=== PATIENT | female | born 1945 | race Caucasian/White ===

== ENCOUNTER → 2016-04-16 | Outpatient (CLI) | payer MEDICARE, BC ==
--- NOTE | 2016-04-19 07:23 | MM ---
Reason for exam: clinical finding. Last mammogram was performed 1 year and 4 months ago. History: Patient is postmenopausal and has history of breast cancer at age 53. Lumpectomy of the right breast. Chemotherapy. Radiation therapy of the right breast. Physical Findings: Nurse Summary: 0.5cm nodule in the left breast at 3 o'clock (nurse rachna). MG 3D Diag Mammo W/Cad LUZ Bilateral CC and MLO view(s) were taken. Prior study comparison: December 18, 2014, bilateral MG diagnostic mammo w CAD LUZ. February 07, 2012, mammogram, performed at [facility]. The breast tissue is heterogeneously dense. This may lower the sensitivity of mammography. Finding: There are typically benign calcifications in both breasts. Stable post radiation therapy and lumpectomy changes in the right breast. No significant changes in finding since December 18, 2014 and February 07, 2012. These results were verbally communicated with the patient and result sheet given to the patient on 04/16/16. ASSESSMENT: Incomplete: need additional imaging evaluation, BI-RAD 0 RECOMMENDATION: Ultrasound of the left breast.
--- NOTE | 2016-04-19 07:31 | USB ---
Reason for exam: clinical finding. History: Patient is postmenopausal and has history of breast cancer at age 53. Lumpectomy of the right breast. Chemotherapy. Radiation therapy of the right breast. US Breast BILAT Right breast ultrasound including all four quadrants, the retroareolar region and axilla demonstrates a 21 x 18 x 10mm hypoechoic shadowing tissue at prior cancer site at 12 o'clock. Left breast ultrasound including all four quadrants, the retroareolar region and axilla demonstrates several shadowing calcifications measuring 10mm at 12 o'clock, 7mm at 1 o'clock, 13mm at 2 o'clock at BB, 10mm at 5 o'clock and 5mm at 10 o'clock. No mass identified to biopsy. These results were verbally communicated with the patient and result sheet given to the patient on 04/16/16. ASSESSMENT: Benign, BI-RAD 2 RECOMMENDATION: Follow-up diagnostic mammogram of both breasts in 1 year.
== END | disposition home or self-care (01) ==
LOC: RADMAMWWP 14:23
PROVIDERS: ATTEND Surgery
DX: R92.8 Other abnormal and inconclusive findings on diagnostic imaging of breast (principal)
CPT/HCPCS: 76641; G0204; G0279

== ENCOUNTER 2017-07-05 16:08 | Inpatient (IN) | payer MEDICARE, BC ==
[2017-07-05 17:32] LABS: Glucose,Whole Blood 152 mg/dL (75-99)
[2017-07-05] MEDS ORDERED: NITROGLYCERIN SL TABS 0.4 MG TAB SUBLINGUAL PRN (17:41)
--- NOTE | 2017-07-05 18:31 | XR ---
EXAMINATION TYPE: XR foot complete LT DATE OF EXAM: 07/05/2017 CLINICAL HISTORY: Left foot pain TECHNIQUE: Frontal, lateral, and oblique images of the left foot are obtained. COMPARISON: None FINDINGS: There is surgical absence of the distal left fifth digit and distal metatarsal. There is di ffuse osseous demineralization and extensive vascular calcifications. Degenerative changes of the met atarsal phalangeal joints, proximal interphalangeal joints, and interphalangeal joints are noted. Mod erate plantar enthesophyte is seen. Diffuse soft tissue swelling of the hindfoot, midfoot and forefoo t are seen that are overall mild in degree. IMPRESSION: Extensive vascular atherosclerosis suggesting peripheral arterial disease, diffuse osseou s demineralization, surgical absence of portions of the left fifth digit, and generalized soft tissue swelling are all noted.
[2017-07-05 19:16] LABS: Basophils # (A) 0.1 k/uL (0-0.2); Basophils % (A) 1 %; Eosinophils # (A) 0.3 k/uL (0-0.7); Eosinophils % (A) 4 %; HCT 35.9 % (34.0-46.0); HGB 11.8 gm/dL (11.4-16.0); Lymphocytes # (A) 0.8 k/uL (1.0-4.8); Lymphocytes % (A) 13 %; MCH 27.4 pg (25.0-35.0); MCHC 32.8 g/dL (31.0-37.0); MCV 83.6 fL (80.0-100.0); Mean Platelet Volume 7.2; Monocytes # (A) 0.4 k/uL (0-1.0); Monocytes % (A) 6 %; Neutrophils # (A) 4.8 k/uL (1.3-7.7); Neutrophils % (A) 74 %; Platelet Count 239 k/uL (150-450); RDW 13.7 % (11.5-15.5); WBC 6.5 k/uL (3.8-10.6)
[2017-07-05 19:38] LABS: Albumin 3.5 g/dL (3.5-5.0); Calcium 9.2 mg/dL (8.4-10.2); Potassium 3.7 mmol/L (3.5-5.1); Total Bilirubin 0.4 mg/dL (0.2-1.3); Total Protein 6.9 g/dL (6.3-8.2)
[2017-07-05 21:05] LABS: Glucose,Whole Blood 220 mg/dL (75-99)
[2017-07-05] MEDS: PIPERACILLIN-TAZOBACTAM 3.375 GM in DEXTROSE/WATER 1 50ML.BAG IVPB SCH (21:12)
[2017-07-05] MEDS: INSULIN ASPART 100 UNIT/ML 1 ML 10 ML VIAL SQ SCH (21:52)
[2017-07-05] MEDS: PRAVASTATIN SODIUM 40 MG TAB PO SCH (21:53)
[2017-07-05] MEDS: hydrALAZINE HCL 50 MG TAB PO SCH (21:56)
[2017-07-06] MEDS: PIPERACILLIN-TAZOBACTAM 3.375 GM in DEXTROSE/WATER 1 50ML.BAG IVPB SCH ×3 (05:20→20:23)
[2017-07-06 07:26] LABS: Glucose,Whole Blood 147 mg/dL (75-99)
[2017-07-06] MEDS: hydrALAZINE HCL 50 MG TAB PO SCH ×3 (08:04→21:06)
[2017-07-06] MEDS: CHOLECALCIFEROL 1,000 UNIT TAB PO SCH (08:04)
[2017-07-06] MEDS: amLODIPine 5 MG TAB PO SCH (08:04)
[2017-07-06] MEDS: ASPIRIN 81 MG PO SCH (08:04)
[2017-07-06] MEDS: CARVEDILOL 3.125 MG TAB PO SCH ×3 (08:04→16:09)
[2017-07-06] MEDS: INSULIN ASPART 100 UNIT/ML 1 ML 10 ML VIAL SQ SCH ×5 (08:04→21:05)
[2017-07-06] MEDS: FERROUS SULFATE 325 MG TAB PO SCH (08:04)
[2017-07-06] MEDS: INSULIN DETEMIR 100 UNIT/ML 10 ML VIAL SQ SCH (08:05)
--- NOTE | 2017-07-06 09:45 | HP ---
HISTORY AND PHYSICAL CHIEF COMPLAINT: A 71-year-old white female with failed outpatient treatment with diabetic wound infection of the left lower extremity. She has a history of amputation to her right leg due to PAD. She is diabetic under poor control with her Accu-Chek A1c 9.5. She has failed outpatient podiatry wound care every 2 weeks with oral antibiotics for multiple days. Her wound is getting bigger on her left lateral foot and her entire foot redness, warmth and swelling is proceeding up to the lower leg on the left side above the foot at this point, at which time she is admitted for acute osteomyelitis/cellulitis/diabetic wound infection of the left leg with approximate 2 inch x 1 inch eschar wound on the left lateral foot, which has been debrided over 2 weeks. She has poor mobility, walks with a walker. She has a history of insulin-dependent diabetes mellitus, hypertension, irritable bowel syndrome, hypertension, which has been out of control recently states as well as anxiety, dyslipidemia, possibly diastolic heart failure. HOME MEDICATIONS: Home medications include: 1. Aspirin 81 mg daily. 2. Calcitriol 0.25 mcg daily. 3. Coreg 3.125 t.i.d.. 4. Vitamin D 2000 units daily. 5. Ferrous sulfate 325 daily. 6. Hydralazine 50 t.i.d. 7. Levemir 16 units q.a.m. 8. Multivitamin daily. 9. Nitroglycerin sublingual p.r.n. 10.IV Zosyn q.8 hours. 11.Pravachol 40 mg daily. 12.Spironolactone 25 mg daily. REVIEW OF SYSTEMS: Fourteen-point review of systems negative except for mentioned in HPI. PHYSICAL EXAMINATION: Temp 98.5, pulse 80, respiratory rate 16 to 18, blood pressure 130s to 160s over 70s, O2 is 90% to 95% on room air. CARDIOVASCULAR: S1, S2. A 2/6 systolic ejection murmur. LUNGS: Show decreased breath sounds x4. Scattered rhonchi and wheeze. PSYCH: Fair mood and affect. NEUROLOGIC: Alert and oriented x3. INTEGUMENT: Right leg, she has above-knee amputation with a prosthesis. Left leg, she has severe redness to the knee down to the entire foot, greatest around the foot on the lateral aspect where there is a 2 inch x 1 inch eschar type wound. She has significant redness, warmth, and swelling to the entire left foot up to the knee in the calf area also. X-ray shows peripheral artery disease for which arterial Doppler will be ordered. Continue on broad-spectrum antibiotics. Accu-Cheks protocol. Blood pressure control. Will follow up in next 24 to 48 hours. After bone scan is done to rule out osteomyelitis, a port will be placed for IV antibiotics, which her coal feeder operator has recommended as an outpatient to start IV antibiotics with a port, as it has not healed with oral antibiotics and debridement per Podiatry. We will get Dr. Galo to put in a port. Infectious Disease is consulted for antibiotic choice and she will need probably long-term care somewhere in rehab facility for IV antibiotics or home antibiotics. Will have social set that up. MMODL / IJN: [id number] /
--- NOTE | 2017-07-06 11:49 | CDI ---
Last Revision, March 2017 Documentation Clarification Form Date: 07/06/2017 From: Columba Ashby CCS, CCDS Admit Date: 07/05/2017 4:26:00 PM Patient Name: Kat Eckert Visit Number: [id number] Discharge Date: ATTENTION: The Clinical Documentation Specialists (CDI) and [facility] Coding Staff appreciate your assistance in clarifying documentation. Please respond to the clarification below the line at the bottom and electronically sign. The CDI & [facility] Coding staff will review the response and follow-up if needed. Please note: Queries are made part of the Legal Health Record. If you have any questions, please contact the author of this message via ITS. Dr. Scott Sharp: Per the History & Physical: "She has a history of .... hypertension, which has been out of control recently states as well as ... possibly diastolic heart failure." History/Risk Factors: IDDM, Hypertension, IBS, Anxiety, Dyslipidemia and "possibly" diastolic heart failure. Home Rx: Aldactone, Pravachol, Nitro sl, Coreg, Apresoline, Norvasc, Ins sq, ASA. Clinical Indicators: Patient presented with a diabetic wound infection of the LLE, failed outpatient podiatry wound care & po antibiotics. Enlarging wound let lateral foot, entire foot redness, warmth & swelling proceeding up lower leg left side. VS/Pulse OX: P 80-73, BP 134/76 - 161/73; PO 95-90 RA LAB: BUN 22, Cr 1.41, Gluc 175 Treatment: Nitro sl, IV Zosyn, Insulin sq. Consults: Vascular surgery & Infectious Disease. In your professional opinion, can you please clarify the acuity and type of CHF if known or if evident or ruled out. Systolic Heart Failure: o Acute o Chronic o Acute on Chronic Diastolic Heart Failure: o Acute o Chronic o Acute on Chronic Systolic & Diastolic Heart Failure: o Acute o Chronic o Acute on Chronic Heart Failure Unable to Determine Other, please specify Ruled In w/acuity & type Ruled out Please continue to document in your progress notes and discharge summary in order to capture severity of illness and risk of mortality. Include clinical findings that support your diagnosis. MTDD
[2017-07-06 11:53] VITALS: BMI 29.7
--- NOTE | 2017-07-06 11:56 | CDI ---
Last Revision, March 2017 Documentation Clarification Form Date: 07/06/2017 From: Columba Ashby CCS, CCDS Admit Date: 07/05/2017 4:26:00 PM Patient Name: Kat Eckert Visit Number: [id number] Discharge Date: ATTENTION: The Clinical Documentation Specialists (CDI) and [facility] Coding Staff appreciate your assistance in clarifying documentation. Please respond to the clarification below the line at the bottom and electronically sign. The CDI & [facility] Coding staff will review the response and follow-up if needed. Please note: Queries are made part of the Legal Health Record. If you have any questions, please contact the author of this message via ITS. Dr. Scott Sharp: Per the History & Physical, patient has IDDM documented as "She is diabetic under poor control with her Accu-Chek A1c." Per the Infectious Disease Consult, the patient's DM is "uncontrolled". History/Risk Factors: IDDM, Hypertension, Dyslipidemia, Possibly Diastolic Heart Failure Clinical Indicators: LAB: BUN 22, Cr 1.41, Gluc 175 Treatment: Nitro sl, IV Zosyn, Insulin sq. Consults: ID, Vascular In order to capture the severity of Illness and necessary documentation specificity, please clarify: DM Type 1 DM Type 2 Other, please specify Unable to Determine Please document any body system complications or specific manifestations related to the diabetes: o Diabetic Nephropathy o Diabetic Autonomic Neuropathy o Diabetic Amyotrophy o Diabetic Peripheral Vascular Disease o Diabetic foot ulcers, specify location o Hypoglycemia with or without coma o Hyperglycemia with or without coma o Other condition Please continue to document in your progress notes and discharge summary in order to capture severity of illness and risk of mortality. Include clinical findings that support your diagnosis. MTDD
--- NOTE | 2017-07-06 12:57 | NM ---
EXAMINATION TYPE: NM bone 3 phase DATE OF EXAM: 07/06/2017 COMPARISON: NONE HISTORY: Left foot nonhealing ulcer Anterior posterior full body images and oblique views of the lumbar spine are submitted. Additionally, Triple phase bone scintigraphy was performed following the injection of25.2 mCi Tc 99m MDP. Immediate images and 3.25 hours post injection images acquired. FINDINGS: Full body images demonstrate evidence of [id number] amputation on the right. There is increased u ptake involving the left ankle and foot. Abnormal uptake involving the knees suggestive of post arthr itic changes. Abnormal uptake involving the shoulders and wrist is post arthritic. Nonspecific uptake throughout the thoracic spine and lumbar spine likely degenerative. Triple phase imaging demonstrates increased flow to the left foot. Increased soft tissue uptake is no kishore. Delayed imaging of the foot demonstrates increased uptake along the fifth metatarsal. IMPRESSION: Cellulitis with findings suggestive of osteomyelitis of the left fifth metatarsal. Nonspecific uptake through the vertebral column likely degenerative. X-ray correlation suggested.
[2017-07-06 13:49] LABS: Glucose,Whole Blood 145 mg/dL (75-99)
[2017-07-06 13:52] LABS: Hemoglobin A1C 9.6 % (4.0-6.0)
[2017-07-06] MEDS: MULTIVITAMINS, THERA 1 EACH TAB PO SCH (14:07)
[2017-07-06] MEDS: COLLAGENASE 250 UNIT/GM OINTMENT 30 GM TUBE TOPICAL SCH (16:09)
[2017-07-06] MEDS: SPIRONOLACTONE 25 MG TAB PO SCH (16:09)
[2017-07-06 16:59] LABS: Glucose,Whole Blood 215 mg/dL (75-99)
--- NOTE | 2017-07-06 17:45 | CONS ---
CONSULTATION This is a 71-year-old female known to me from the past and from my office. Patient had an amputation on the right side in the past by me and she also had a left 5th toe amputation done by me in the past. She developed a chronic wound on the left foot lateral aspect. The patient is under care of a air traffic control equipment repairer. The patient has been admitted and had a bone scan which suggested 5th metatarsal osteo. MEDICAL HISTORY: History of diabetes, peripheral vascular disease. EXAMINATION: Patient was seen in her room. NECK: Supple. Trachea central. CHEST: Clear to auscultation. ABDOMEN: Soft. The patient has a right BK amputation done in the past. Femorals are not palpable. Posterior dorsalis pedis is not palpable. Patient has a chronic wound on the left foot lateral aspect with some skin necrosis and possibility of osteomyelitis. PLAN: We will continue with IV antibiotics, Santyl cream for local wound care. I will review her records from the office. She may have some angiogram done in the past and we will review the record and follow with you. Thank you very much for this consultation. MMODL / IJN: [id number] /
[2017-07-06 20:29] LABS: Glucose,Whole Blood 273 mg/dL (75-99)
[2017-07-06] MEDS: PRAVASTATIN SODIUM 40 MG TAB PO SCH (21:06)
--- NOTE | 2017-07-06 23:12 | CONS ---
CONSULTATION DATE OF SERVICE: 07/06/2017. REASON FOR CONSULTATION: Left foot nonhealing wound and a question of osteomyelitis. HISTORY OF PRESENT ILLNESS: The patient is a 71-year-old female, who apparently developed a wound on the left foot lateral border at the base of the previous left 5th toe amputated site. The wound has been there for a couple of weeks to months and may have started from irritation from one of her shoes. The patient has been evaluated by her quality assurance director in the outpatient setting and did mention the wound has been debrided every week and also did a culture done but did not recall what type of infection was. She has been treated in the outpatient setting with an antibiotic. However, the patient did not recall the name of this antibiotic. The patient was noticed to have significant worsening of left foot with more swelling and redness. The patient did have mild dull aching pain 3 to 4/10, and no radiation with minimal drainage. Denies any high-grade fever though. With these symptoms, the patient has been admitted directly to the hospital. The patient did have x-rays of the foot which did show some demineralization, but no active bony changes. Subsequent bone scan was completed, which is positive for osteomyelitis at the left 5th metatarsal infection. ID was consulted for further recommendation regarding antibiotic therapy. REVIEW OF SYSTEMS: Constitutional: Positive for weakness and denies any high-grade fever. Eyes no complaint. ENT no complaint. Respiratory no complaint. Cardiovascular no complaint. Genitourinary no complaint. Gastrointestinal: No complaint. Musculoskeletal no complaint. INTEGUMENTARY: No complaint. Psychological: No complaint. ENDOCRINE: No complaint. Neurological: No complaint. PAST MEDICAL HISTORY: Significant for congestive heart failure, peripheral vascular disease, osteoarthritis, hyperlipidemia, chronic renal insufficiency. PAST SURGICAL HISTORY: Right BKA, left 5th toe amputation, cholecystectomy and hernia repair. SOCIAL HISTORY: Remote history of smoking. No drinking or drug use. FAMILY HISTORY: No pertinent findings noticed. ALLERGIES: INCLUDING TO CIPROFLOXACIN, LEVAQUIN, IODINATED CONTRAST DYE AND SULFA ANTIBIOTIC. MEDICATIONS: Medication include the patient is currently on Xanax, Norvasc, aspirin, Rocaltrol, Coreg, vitamin D3, iron sulfate, hydralazine, NovoLog, Levemir, Nitrostat, Zosyn, Pravachol, Aldactone. EXAMINATION: Blood pressure 138/58 with a pulse of 70, temperature 96.8. She is 97% on room air. General description is an elderly female up in the chair in no distress. No tachypnea or accessory muscles of respiration use. HEENT: Shows no pallor or scleral icterus. Oral mucosal membranes moist. No pharyngeal erythema or thrush. Neck trachea central. No thyromegaly. Lungs unlabored breathing. Clear to auscultation. No wheeze or crackles. Heart S1, S2. Regular rate and rhythm. No murmur. ABDOMEN: Soft. No tenderness. No guarding and no rigidity. EXTREMITIES: No edema of feet. Examination of the left foot lateral border did have a wound with soft tissue at the base. Wound was clean and deep cultures were obtained. They did have some surrounding redness however redness is slightly less compared to yesterday. At the time of admission, neurologically, patient is awake, alert, oriented x3. Mood and affect normal. LABS: Hemoglobin is 11.8, white count 6.5. BUN of 22, creatinine 1.41. Electrolytes have been normal. Liver enzymes are normal. X-ray report as mentioned above. DIAGNOSTIC IMPRESSION/PLAN: 1. Patient with chronic nonhealing wound to the left foot lateral border in a patient who did have a previous history of osteomyelitis requiring right below knee amputation and left 5th toe amputation. Now evidence of wound nonhealing and has failed outpatient antibiotic therapy with both scan positive likely getting osteomyelitis in a patient who does have underlying diabetes, uncontrolled. infection not entirely excluded. 2. Patient did have a comorbid condition of insulin-dependent diabetes mellitus, poorly controlled. 3. Chronic renal insufficiency, complicated. Use antibiotic to treat underlying condition. 4. Patient does have multiple antibiotic ALLERGIES INCLUDING TO SULFA and QUINOLONES limiting the number of antibiotics that could be safely used. PLAN: 1. Wound base was cleaned and deep cultures were obtained the antibiotic therapy. 2. Santyl to the wound followed by moist dressing to be changed daily. 3. We will obtain baseline sedimentation rate and CRP. 4. Zosyn 3.375 g IV piggyback. 5. Depending upon the clinical response as well as cultures will adjust her medications further if needed. Thank you for this consultation. Will follow this patient along with you. MMODL / IJN: [id number] /
[2017-07-07] MEDS: PIPERACILLIN-TAZOBACTAM 3.375 GM in DEXTROSE/WATER 1 50ML.BAG IVPB SCH ×3 (04:02→20:02)
[2017-07-07 07:22] LABS: Glucose,Whole Blood 88 mg/dL (75-99)
[2017-07-07] MEDS: hydrALAZINE HCL 50 MG TAB PO SCH ×3 (09:30→23:37)
[2017-07-07] MEDS: amLODIPine 5 MG TAB PO SCH (09:30)
[2017-07-07] MEDS: ASPIRIN 81 MG PO SCH (09:30)
[2017-07-07] MEDS: FERROUS SULFATE 325 MG TAB PO SCH (09:30)
[2017-07-07] MEDS: CHOLECALCIFEROL 1,000 UNIT TAB PO SCH (09:30)
[2017-07-07] MEDS: CARVEDILOL 3.125 MG TAB PO SCH ×3 (09:31→16:48)
[2017-07-07] MEDS: INSULIN ASPART 100 UNIT/ML 1 ML 10 ML VIAL SQ SCH ×4 (09:31→21:19)
[2017-07-07] MEDS: INSULIN DETEMIR 100 UNIT/ML 10 ML VIAL SQ SCH (09:31)
[2017-07-07 11:46] LABS: Glucose,Whole Blood 174 mg/dL (75-99)
[2017-07-07] MEDS: MULTIVITAMINS, THERA 1 EACH TAB PO SCH (12:48)
[2017-07-07] MEDS ORDERED: FLUCONAZOLE 150 MG TAB PO STA (14:20)
--- NOTE | 2017-07-07 15:31 | PN ---
PROGRESS NOTE DATE OF SERVICE: 07/07/2017. REASON FOR FOLLOWUP: Left foot chronic wound with underlying osteomyelitis and gram-negative acute with associated history of diabetes mellitus. INTERVAL HISTORY: The patient is afebrile, she is breathing comfortably. Denies having any chest pain, shortness of breath, cough, abdominal pain. She is complaining of some urethral itching. No drainage though and no pain in the left foot, lateral border wound area. PHYSICAL EXAMINATION: Blood pressure 142/59, pulse 78, temperature 96.7. She is 95% on room air. General description is an elderly female up in the bed in no distress. RESPIRATORY SYSTEM: Unlabored breathing, clear to auscultation anteriorly. HEART: S1, S2. Regular rate and rhythm. ABDOMEN: Soft, no tenderness. Left foot lateral border wound is currently dressed up, no obvious drainage on the dressing. LABS: Sed rate is 44, CRP is 10.1. Wound culture showing gram-negative bacilli. DIAGNOSTIC IMPRESSION AND PLAN: 1. Patient with left foot lateral border chronic wound with underlying osteomyelitis, culture showing gram-negative. Patient will continue Zosyn, patient need IV access site which could be either a PICC line or a Lozoya catheter. Will leave that decision to the vascular surgeon on the case. Discharge may depend on the culture report. 2. Patient with itching in the urethral area with question of Chasity infection. She will be given 1 dose of Diflucan, see response to the same. Continue supportive care. MMODL / IJN: [id number] /
[2017-07-07] MEDS: SPIRONOLACTONE 25 MG TAB PO SCH (16:44)
[2017-07-07 16:59] LABS: Glucose,Whole Blood 156 mg/dL (75-99)
[2017-07-07] MEDS: COLLAGENASE 250 UNIT/GM OINTMENT 30 GM TUBE TOPICAL SCH (19:59)
[2017-07-07 20:54] LABS: Glucose,Whole Blood 129 mg/dL (75-99)
[2017-07-07] MEDS: PRAVASTATIN SODIUM 40 MG TAB PO SCH (21:28)
[2017-07-07] MEDS: BETAMETHASONE DIPROPIONATE 0.05% OINTMENT 45 GM TUBE TOPICAL SCH (21:29)
[2017-07-07] MEDS: LORATADINE 10 MG TAB PO SCH (21:29)
--- NOTE | 2017-07-07 22:13 | PN ---
PROGRESS NOTE SUBJECTIVE: [id number]-old white female who has osteomyelitis and diabetic wound infection of the left lower foot. No chest pain or shortness of breath. CARDIOVASCULAR: S1, S2. LUNGS: Clear. GI: Soft, nontender. INTEGUMENT: She has a lateral foot wound. CRP is 10.1. Sed rate is 44. Wound culture with Gram-negative bacilli. ASSESSMENT: Chronic wound infection with Gram-negative. Continue with Zosyn. IV access PICC line or Lozoya catheter. Discharge depending on the culture report for IV antibiotics. MMODL / IJN: [id number] /
[2017-07-08] MEDS: PIPERACILLIN-TAZOBACTAM 3.375 GM in DEXTROSE/WATER 1 50ML.BAG IVPB SCH ×3 (04:19→20:21)
[2017-07-08 07:14] LABS: Glucose,Whole Blood 89 mg/dL (75-99)
[2017-07-08] MEDS: INSULIN ASPART 100 UNIT/ML 1 ML 10 ML VIAL SQ SCH ×4 (07:32→21:10)
[2017-07-08] MEDS: amLODIPine 5 MG TAB PO SCH (08:05)
[2017-07-08] MEDS: ASPIRIN 81 MG PO SCH (08:05)
[2017-07-08] MEDS: hydrALAZINE HCL 50 MG TAB PO SCH ×3 (08:05→21:10)
[2017-07-08] MEDS: CHOLECALCIFEROL 1,000 UNIT TAB PO SCH (08:05)
[2017-07-08] MEDS: FERROUS SULFATE 325 MG TAB PO SCH (08:05)
[2017-07-08] MEDS: CARVEDILOL 3.125 MG TAB PO SCH ×3 (08:05→17:59)
[2017-07-08] MEDS: LORATADINE 10 MG TAB PO SCH (08:06)
[2017-07-08] MEDS: BETAMETHASONE DIPROPIONATE 0.05% OINTMENT 45 GM TUBE TOPICAL SCH ×2 (08:08→20:22)
[2017-07-08] MEDS: INSULIN DETEMIR 100 UNIT/ML 10 ML VIAL SQ SCH (10:31)
[2017-07-08] MEDS: COLLAGENASE 250 UNIT/GM OINTMENT 30 GM TUBE TOPICAL SCH (10:31)
--- NOTE | 2017-07-08 10:39 | CDI ---
Last Revision, March 2017 Documentation Clarification Form Date: 07/08/2017 10:36:00 Resubmitted, 2nd request From: Columba Ashby CCS, CCDS Admit Date: 07/05/2017 4:26:00 PM Patient Name: Kat Eckert Visit Number: [id number] Discharge Date: ATTENTION: The Clinical Documentation Specialists (CDI) and [facility] Coding Staff appreciate your assistance in clarifying documentation. Please respond to the clarification below the line at the bottom and electronically sign. The CDI & [facility] Coding staff will review the response and follow-up if needed. Please note: Queries are made part of the Legal Health Record. If you have any questions, please contact the author of this message via ITS. Dr. Scott Sharp: Per the History & Physical: "She has a history of .... hypertension, which has been out of control recently states as well as ... possibly diastolic heart failure." History/Risk Factors: IDDM, Hypertension, IBS, Anxiety, Dyslipidemia and "possibly" diastolic heart failure. Home Rx: Aldactone, Pravachol, Nitro sl, Coreg, Feosol, Xanax, Apresoline, Norvasc, Insulin sq, ASA. Clinical Indicators: Patient presented with a diabetic wound infection of the LLE, failed outpatient podiatry wound care & po antibiotics. Enlarging wound let lateral foot, entire foot redness, warmth & swelling proceeding up lower leg left side. VS/Pulse OX: P 80-73, BP 134/76 - 161/73; PO 95-90 RA LAB: BUN 22, Cr 1.41, Gluc 175 Treatment: Nitro sl, IV Zosyn, Insulin sq. Consults: Vascular surgery & Infectious Disease. In your professional opinion, can you please clarify the acuity and type of CHF if known or if evident or ruled out. Diastolic Heart Failure: o Acute o Chronic o Acute on Chronic Systolic & Diastolic Heart Failure: o Acute o Chronic o Acute on Chronic Heart Failure Unable to Determine Other, please specify Ruled In w/acuity & type Ruled out Please continue to document in your progress notes and discharge summary in order to capture severity of illness and risk of mortality. Include clinical findings that support your diagnosis. MTDD
--- NOTE | 2017-07-08 10:42 | CDI ---
Last Revision, March 2017 Documentation Clarification Form Date: 07/08/2017 10:39:00 Resubmitted, 2nd request. From: Columba Ashby Admit Date: 07/05/2017 4:26:00 PM Patient Name: Kat Eckert Visit Number: [id number] Discharge Date: ATTENTION: The Clinical Documentation Specialists (CDI) and [facility] Coding Staff appreciate your assistance in clarifying documentation. Please respond to the clarification below the line at the bottom and electronically sign. The CDI & [facility] Coding staff will review the response and follow-up if needed. Please note: Queries are made part of the Legal Health Record. If you have any questions, please contact the author of this message via ITS. Dr. Scott Sharp: Per the History & Physical, patient has IDDM documented as "She is diabetic under poor control with her Accu-Chek A1c." History/Risk Factors: IDDM, Hypertension, Dyslipidemia, Possibly Diastolic Heart Failure Clinical Indicators: LAB: BUN 22, Cr 1.41, Gluc 175 Treatment: Nitro sl, IV Zosyn, Insulin sq Consults: ID, Vascular In order to capture the severity of Illness and necessary documentation specificity, please clarify: DM Type 1 DM Type 2 Other, please specify Unable to Determine Please document any body system complications or specific manifestations related to the diabetes: o Diabetic Nephropathy o Diabetic Autonomic Neuropathy o Diabetic Amyotrophy o Diabetic Peripheral Vascular Disease o Diabetic foot ulcers, specify location o Hypoglycemia with or without coma o Hyperglycemia o Other condition Please continue to document in your progress notes and discharge summary in order to capture severity of illness and risk of mortality. Include clinical findings that support your diagnosis. MTDD
[2017-07-08 12:35] LABS: Glucose,Whole Blood 141 mg/dL (75-99)
[2017-07-08] MEDS: MULTIVITAMINS, THERA 1 EACH TAB PO SCH (12:54)
[2017-07-08] MEDS: SPIRONOLACTONE 25 MG TAB PO SCH (12:55)
--- NOTE | 2017-07-08 16:59 | PN ---
PROGRESS NOTE DATE OF SERVICE: 07/08/2017 REASON FOR FOLLOWUP: Left foot lateral border wound with osteomyelitis. INTERVAL HISTORY: The patient is afebrile. She is currently breathing comfortably. Denies having any chest pain, shortness of breath or cough and no worsening pain in the left foot border area. PHYSICAL EXAMINATION: Her blood pressure is 143/66 with a pulse of 67, temperature 98.4. She is 97% on room air. General description is an elderly female up in the chair in no distress. RESPIRATORY SYSTEM: Unlabored breathing. Clear to auscultation anteriorly. HEART: S1, S2. Regular rate and rhythm. ABDOMEN: Soft. No tenderness. Left foot lateral border wound is currently dressed; no obvious drainage on the dressing. LABS: Wound culture initially was showing a Gram-negative and now saying a polymicrobial. DIAGNOSTIC IMPRESSION AND PLAN: Patient with left foot lateral border wound with underlying osteomyelitis. Initial culture with a Gram-negative; now those have been disregarded by the micro lab. Will discuss with them to grow up the predominant pathogen. Antibiotics were adjusted to Rocephin 2 grams daily. Local wound care with Santyl followed by moist dressing. Await the IV access per Vascular Surgery. Continue supportive care. MMODL / IJN: [id number] /
--- NOTE | 2017-07-08 17:44 | PN ---
PROGRESS NOTE SUBJECTIVE: [id number]old white female awaiting port or PICC line placement for IV antibiotics for osteomyelitis of the left foot. nausea and vomiting with taking all her pills in the morning. Sugars have been mid 100s. CARDIOVASCULAR: S1, S2. LUNGS: Clear. GI: Soft. HEMATOLOGY: Negative Homans. PLAN: Continue PICC line or port placement. Continue IV antibiotics. Discharge planning for [facility]. MMODL / IJN: [id number] /
[2017-07-08 17:47] LABS: Glucose,Whole Blood 175 mg/dL (75-99)
[2017-07-08] MEDS: PRAVASTATIN SODIUM 40 MG TAB PO SCH (20:22)
[2017-07-08] MEDS: HEPARIN SODIUM,PORCINE 5,000 UNIT/ML 1 ML VIAL SQ SCH (20:34)
[2017-07-08 20:48] LABS: Glucose,Whole Blood 273 mg/dL (75-99)
[2017-07-09] MEDS: PIPERACILLIN-TAZOBACTAM 3.375 GM in DEXTROSE/WATER 1 50ML.BAG IVPB SCH ×3 (03:18→21:22)
[2017-07-09 07:31] LABS: Glucose,Whole Blood 86 mg/dL (75-99)
[2017-07-09 07:32] LABS: Mean Platelet Volume 6.8; Platelet Count 264 k/uL (150-450)
[2017-07-09] MEDS ORDERED: IV FLUID CONTINUATION 175 ML IV ONE (07:55)
[2017-07-09] MEDS ORDERED: diphenhydrAMINE 50 MG/ML 1 ML VIAL IVP ONE (07:58)
[2017-07-09] MEDS ORDERED: MIDAZOLAM 2 MG/2 ML VIAL IVP ONE (07:58)
[2017-07-09] MEDS ORDERED: LIDOCAINE 2% INJ 20 MG/ML SQ ONE (08:00)
[2017-07-09] MEDS: INSULIN ASPART 100 UNIT/ML 1 ML 10 ML VIAL SQ SCH ×4 (08:19→21:22)
[2017-07-09] MEDS: INSULIN DETEMIR 100 UNIT/ML 10 ML VIAL SQ SCH (08:20)
[2017-07-09] MEDS: HEPARIN SODIUM,PORCINE 5,000 UNIT/ML 1 ML VIAL SQ SCH ×2 (08:20→21:22)
[2017-07-09] MEDS: COLLAGENASE 250 UNIT/GM OINTMENT 30 GM TUBE TOPICAL SCH (08:20)
[2017-07-09] MEDS: BETAMETHASONE DIPROPIONATE 0.05% OINTMENT 45 GM TUBE TOPICAL SCH ×2 (08:21→21:23)
[2017-07-09] MEDS: FERROUS SULFATE 325 MG TAB PO SCH (09:06)
[2017-07-09] MEDS: LORATADINE 10 MG TAB PO SCH (09:06)
[2017-07-09] MEDS: MULTIVITAMINS, THERA 1 EACH TAB PO SCH (09:06)
[2017-07-09] MEDS: CHOLECALCIFEROL 1,000 UNIT TAB PO SCH (09:06)
[2017-07-09] MEDS: amLODIPine 5 MG TAB PO SCH (09:07)
[2017-07-09] MEDS: hydrALAZINE HCL 50 MG TAB PO SCH ×3 (09:07→21:22)
[2017-07-09] MEDS: ASPIRIN 81 MG PO SCH (09:07)
[2017-07-09] MEDS: CARVEDILOL 3.125 MG TAB PO SCH ×3 (09:07→15:04)
[2017-07-09] MEDS: ALPRAZolam 0.5 MG TAB PO PRN (09:08)
--- NOTE | 2017-07-09 09:27 | OP ---
OPERATIVE REPORT PREOP DIAGNOSIS: Osteomyelitis of the left foot 5th metatarsal with infected wound. PROCEDURE: Ultrasound-guided 5-[place] Medcomp catheter placed right internal jugular approach with conscious sedation 27 minutes. DESCRIPTION OF PROCEDURE: This patient was brought to the rn cardiac cath. Right side of the neck and chest was prepped and draped in a sterile manner. 1% lidocaine was infiltrated into the neck and chest area. Ultrasound-guided micropuncture into the right jugular vein. Micropuncture guide was passed. Checked the C-arm. After that, a tunnel was created. Through the tunnel we brought the Medcomp dialysis catheter to the neck area. Sheath was advanced on the top of the guidewire through the sheath. Through the sheath we placed a 5- [place] Medcomp catheter. Sheath was removed. The tip of the catheter in superior vena cava and atrium flushed with heparin saline and secured with Vicryl and nylon. Dressing applied. Conscious sedation time is 27 minutes. The patient tolerated the procedure well. MMODL / IJN: [id number] /
[2017-07-09 12:18] LABS: Glucose,Whole Blood 263 mg/dL (75-99)
[2017-07-09] MEDS: SPIRONOLACTONE 25 MG TAB PO SCH (13:56)
[2017-07-09 17:34] LABS: Glucose,Whole Blood 155 mg/dL (75-99)
--- NOTE | 2017-07-09 20:40 | IR ---
EXAMINATION TYPE: IR cvc insert central tunneled DATE OF EXAM: 07/09/2017 CLINICAL HISTORY: Central line insertion. TECHNIQUE: Fluoroscopy. COMPARISON: None. FINDINGS: Fluoroscopic guidance was provided during right internal jugular central line insertion pr ena performed by Dr. Spencer. A total of 0.6 minutes of fluoroscopic time was utilized during th e procedure and 3 spot images are acquired. Images acquired show placement of guidewire and subsequen t right internal jugular central venous catheter with tip into right atrium. Overlying pacemaker wire s are present. IMPRESSION: As Above.
[2017-07-09 21:10] LABS: Glucose,Whole Blood 130 mg/dL (75-99)
[2017-07-09] MEDS: PRAVASTATIN SODIUM 40 MG TAB PO SCH (21:22)
[2017-07-10] MEDS: PIPERACILLIN-TAZOBACTAM 3.375 GM in DEXTROSE/WATER 1 50ML.BAG IVPB SCH ×3 (04:46→21:31)
[2017-07-10 07:16] LABS: Glucose,Whole Blood 94 mg/dL (75-99)
[2017-07-10] MEDS: INSULIN ASPART 100 UNIT/ML 1 ML 10 ML VIAL SQ SCH ×4 (07:17→21:31)
[2017-07-10 07:56] LABS: Mean Platelet Volume 7.5; Platelet Count 224 k/uL (150-450)
[2017-07-10] MEDS: CARVEDILOL 3.125 MG TAB PO SCH ×3 (07:59→15:01)
[2017-07-10] MEDS: hydrALAZINE HCL 50 MG TAB PO SCH ×3 (07:59→21:31)
[2017-07-10] MEDS: FERROUS SULFATE 325 MG TAB PO SCH (07:59)
[2017-07-10] MEDS: amLODIPine 5 MG TAB PO SCH (07:59)
[2017-07-10] MEDS: ALPRAZolam 0.5 MG TAB PO PRN (07:59)
[2017-07-10] MEDS: ASPIRIN 81 MG PO SCH (07:59)
[2017-07-10] MEDS: CHOLECALCIFEROL 1,000 UNIT TAB PO SCH (08:00)
[2017-07-10] MEDS: LORATADINE 10 MG TAB PO SCH (08:00)
[2017-07-10] MEDS: MULTIVITAMINS, THERA 1 EACH TAB PO SCH (08:00)
[2017-07-10] MEDS: COLLAGENASE 250 UNIT/GM OINTMENT 30 GM TUBE TOPICAL SCH (08:00)
[2017-07-10] MEDS: HEPARIN SODIUM,PORCINE 5,000 UNIT/ML 1 ML VIAL SQ SCH ×2 (08:00→21:31)
[2017-07-10] MEDS: BETAMETHASONE DIPROPIONATE 0.05% OINTMENT 45 GM TUBE TOPICAL SCH ×2 (08:00→21:31)
[2017-07-10] MEDS: INSULIN DETEMIR 100 UNIT/ML 10 ML VIAL SQ SCH (08:55)
[2017-07-10] MEDS: SPIRONOLACTONE 25 MG TAB PO SCH (11:04)
--- NOTE | 2017-07-10 11:33 | PN ---
PROGRESS NOTE ADDENDUM: Please add to progress note: Chronic diastolic heart failure. MMANNABELLEL / IJN: [id number] /
--- NOTE | 2017-07-10 11:33 | PN ---
PROGRESS NOTE ADDENDUM: Please add: DIAGNOSIS: Diabetes mellitus type 2. MMODL / IJN: [id number] /
[2017-07-10 11:47] LABS: Glucose,Whole Blood 145 mg/dL (75-99)
--- NOTE | 2017-07-10 13:43 | PN ---
PROGRESS NOTE DATE OF SERVICE: 07/09/17 SUBJECTIVE: 71-year-old white female with osteomyelitis of the left foot, had a port placed. She is doing much better. She remains on IV Zosyn at this time. Sugars have been in the mid 94 to 155. Awaiting Infectious Disease recommendations for long-term antibiotics. She will need 4 to 6 weeks of IV antibiotics for left foot lateral border infection with underlying osteomyelitis. gram-negatives. She is getting Rocephin 2 gram IV daily and Santyl dressings to the foot. Vascular Surgery put a port in. She will be sent to rehab this week coming up. MMODL / IJN: [id number] /
[2017-07-10 16:59] LABS: Glucose,Whole Blood 94 mg/dL (75-99)
--- NOTE | 2017-07-10 17:19 | PN ---
PROGRESS NOTE SUBJECTIVE: A 71-year-old white female, osteomyelitis of the left foot, 5th digit, lateral wound infection. Patient is requesting some cream for her left scalp. Otherwise, vital signs appear to be stable. Sugars in the low 100s to high 90s. Cardiovascular S1, S2. Lungs clear. GI: Soft. Integument: Her left leg is red from her mid tibia down to her foot. Bandage on her left foot. Continue current treatment. Follow up in the next 24 to 48 hours for IV PICC line. Port has been placed and she is going to correction on IV antibiotics for about 6 weeks. MMODL / IJN: [id number] /
[2017-07-10 20:49] LABS: Glucose,Whole Blood 168 mg/dL (75-99)
[2017-07-10] MEDS: PRAVASTATIN SODIUM 40 MG TAB PO SCH (21:31)
[2017-07-11] MEDS: PIPERACILLIN-TAZOBACTAM 3.375 GM in DEXTROSE/WATER 1 50ML.BAG IVPB SCH ×2 (04:59→16:19)
--- NOTE | 2017-07-11 07:12 | PN ---
PROGRESS NOTE DATE OF SERVICE: 07/10/2017 REASON FOR FOLLOWUP: Left foot lateral border wound with osteomyelitis. INTERVAL HISTORY: The patient is afebrile. She is breathing comfortably. Denies having any chest pain, shortness of breath or cough. No abdominal pain and no pain in her left foot lateral border wound area. PHYSICAL EXAMINATION: On examination, blood pressure 133/69 with pulse of 73, temperature 97. She is 95% on room air. General description is an elderly female up in the bed in no distress. RESPIRATORY SYSTEM: Unlabored breathing, clear to auscultation anteriorly. HEART: S1, S2, regular rate and rhythm. ABDOMEN: Soft, no tenderness. Left foot lateral border wound is currently dressed up, no obvious drainage on the dressing. DIAGNOSTIC IMPRESSION AND PLAN: Patient with left foot lateral border wound with secondary cellulitis with underlying osteomyelitis. Initial culture showing a Gram-negative. However, culture has been subsequently rejected by the micro lab. A repeat culture has been done by Dr. Galo yesterday. Will await for them to be finalized. Keep the patient on Zosyn at this point. Local wound care with Santyl. Continue supportive care. MMODL / IJN: [id number] /
[2017-07-11 07:17] LABS: Glucose,Whole Blood 87 mg/dL (75-99)
[2017-07-11] MEDS: INSULIN ASPART 100 UNIT/ML 1 ML 10 ML VIAL SQ SCH ×4 (07:36→22:35)
[2017-07-11 08:11] LABS: Albumin 3.1 g/dL (3.5-5.0); Calcium 8.7 mg/dL (8.4-10.2); Total Bilirubin 0.2 mg/dL (0.2-1.3); Total Protein 6.1 g/dL (6.3-8.2)
[2017-07-11 08:13] LABS: Basophils % (A) 1 %; Eosinophils # (A) 0.4 k/uL (0-0.7); Eosinophils % (A) 6 %; HCT 34.5 % (34.0-46.0); HGB 10.8 gm/dL (11.4-16.0); Lymphocytes # (A) 0.7 k/uL (1.0-4.8); Lymphocytes % (A) 13 %; MCHC 31.4 g/dL (31.0-37.0); Mean Platelet Volume 7.5; Monocytes # (A) 0.3 k/uL (0-1.0); Monocytes % (A) 6 %; Neutrophils # (A) 4.2 k/uL (1.3-7.7); Neutrophils % (A) 72 %; Platelet Count 236 k/uL (150-450); RBC 4.01 m/uL (3.80-5.40); WBC 5.8 k/uL (3.8-10.6)
[2017-07-11] MEDS: INSULIN DETEMIR 100 UNIT/ML 10 ML VIAL SQ SCH (08:19)
[2017-07-11] MEDS: HEPARIN SODIUM,PORCINE 5,000 UNIT/ML 1 ML VIAL SQ SCH ×2 (08:19→21:52)
[2017-07-11] MEDS: FERROUS SULFATE 325 MG TAB PO SCH (08:20)
[2017-07-11] MEDS: amLODIPine 5 MG TAB PO SCH (08:20)
[2017-07-11] MEDS: CARVEDILOL 3.125 MG TAB PO SCH ×3 (08:20→16:19)
[2017-07-11] MEDS: CHOLECALCIFEROL 1,000 UNIT TAB PO SCH (08:20)
[2017-07-11] MEDS: ASPIRIN 81 MG PO SCH (08:20)
[2017-07-11] MEDS: BETAMETHASONE DIPROPIONATE 0.05% OINTMENT 45 GM TUBE TOPICAL SCH ×2 (08:20→21:53)
[2017-07-11] MEDS: COLLAGENASE 250 UNIT/GM OINTMENT 30 GM TUBE TOPICAL SCH (08:20)
[2017-07-11] MEDS: hydrALAZINE HCL 50 MG TAB PO SCH ×3 (08:21→21:52)
[2017-07-11] MEDS: LORATADINE 10 MG TAB PO SCH (08:21)
[2017-07-11] MEDS ORDERED: CALCITRIOL 0.25 MCG CAP PO SCH (09:00)
--- NOTE | 2017-07-11 11:06 | CDI ---
Last Revision, March 2017 Documentation Clarification Form Date: 07/11/2017 10:55:00 AM (resubmitted) From: Columba Ashby CCS, CCDS Admit Date: 07/05/2017 4:26:00 PM Patient Name: Kat Eckert Visit Number: [id number] Discharge Date: ATTENTION: The Clinical Documentation Specialists (CDI) and [facility] Coding Staff appreciate your assistance in clarifying documentation. Please respond to the clarification below the line at the bottom and electronically sign. The CDI & [facility] Coding staff will review the response and follow-up if needed. Please note: Queries are made part of the Legal Health Record. If you have any questions, please contact the author of this message via ITS. Dr. Scott Sharp: Thank you for clarifying the type of Diabetes Mellitus (type II), please document your response to the following: Per the History & Physical, patient has IDDM II documented as "She is diabetic under poor control with her Accu-Check A1c." Per the Infectious Disease consult: "...patient does have underlying diabetes, uncontrolled." History/Risk Factors: IDDM II, Hypertension, Dyslipidemia, Possibly Diastolic Heart Failure Clinical Indicators: LAB: BUN 22, Cr 1.41, Gluc 175 Treatment: Nitro sl, IV Zosyn, Insulin sq Consults: ID, Vascular In order to capture the severity of Illness and necessary documentation specificity, please clarify any body system complications or specific manifestations related to the diabetes: Diabetic Nephropathy Diabetic Neuropathy Diabetic Peripheral Vascular Disease Diabetic foot ulcers, specify location Hypoglycemia with or without coma Hyperglycemia with or without coma Other condition Please continue to document in your progress notes and discharge summary in order to capture severity of illness and risk of mortality. Include clinical findings that support your diagnosis. MTDD
[2017-07-11 12:23] LABS: Glucose,Whole Blood 121 mg/dL (75-99)
[2017-07-11] MEDS: MULTIVITAMINS, THERA 1 EACH TAB PO SCH (13:23)
[2017-07-11] MEDS: SPIRONOLACTONE 25 MG TAB PO SCH (13:23)
[2017-07-11 17:18] LABS: Glucose,Whole Blood 150 mg/dL (75-99)
[2017-07-11 21:00] LABS: Glucose,Whole Blood 245 mg/dL (75-99)
--- NOTE | 2017-07-11 21:18 | PN ---
PROGRESS NOTE DATE OF SERVICE: 07/11/2017. REASON FOR FOLLOWUP: Left leg of wound and osteomyelitis. INTERVAL HISTORY: The patient is afebrile. She is currently breathing comfortably. Denies having any chest pain, shortness of breath or cough. Abdominal pain or any diarrhea. EXAMINATION: Her blood pressure is 136/68 with a pulse of 70, temperature 96.6. She is 98% on room air. General description is an elderly female up in the bed in no distress. Respiratory system unlabored breathing. Clear to auscultation anteriorly. Heart S1, S2. Regular rate and rhythm. Abdomen soft, no tenderness. Left leg wound with minimal amount of slough tissue surrounding redness improved. LABS: Hemoglobin is 10.2, white count 5.8. BUN of 36, creatinine 2.09. DIAGNOSTIC IMPRESSION AND PLAN: Patient with a left leg nonhealing wound with secondary cellulitis and osteomyelitis. Wound culture with a gram-negative. We are waiting for these cultures to finalized discharge antibiotics. Continue the patient on Zosyn at this point. Did have slight jump in her creatinine that needs to be monitored closely. Repeat the BMP tomorrow. Continue supportive care. MMODL / IJN: [id number] /
[2017-07-11] MEDS: PRAVASTATIN SODIUM 40 MG TAB PO SCH (21:52)
--- NOTE | 2017-07-11 22:35 | PN ---
PROGRESS NOTE SUBJECTIVE: This is a 71-year-old white female with osteomyelitis of the left foot. Awaiting final cultures for IV PICC line placement. Continue with current treatments. Vital signs stable. Afebrile. CARDIOVASCULAR: S1, S2. LUNGS: Clear. GI: Soft. INTEGUMENT: Lateral left foot. Wound cultures are pending. Redness of the left leg improved. Scalp dermatitis, improved with triamcinolone cream. Await final cultures. IV antibiotics for 6 weeks will be needed. MMODL / IJN: [id number] /
[2017-07-12] MEDS: PIPERACILLIN-TAZOBACTAM 3.375 GM in DEXTROSE/WATER 1 50ML.BAG IVPB SCH (04:51)
[2017-07-12 07:37] LABS: Glucose,Whole Blood 99 mg/dL (75-99)
[2017-07-12] MEDS: INSULIN ASPART 100 UNIT/ML 1 ML 10 ML VIAL SQ SCH ×3 (07:58→18:00)
[2017-07-12 08:11] VITALS: RESP 16
[2017-07-12] MEDS: CARVEDILOL 3.125 MG TAB PO SCH ×3 (09:08→18:00)
[2017-07-12] MEDS: CHOLECALCIFEROL 1,000 UNIT TAB PO SCH (09:08)
[2017-07-12] MEDS: FERROUS SULFATE 325 MG TAB PO SCH (09:08)
[2017-07-12] MEDS: LORATADINE 10 MG TAB PO SCH (09:08)
[2017-07-12] MEDS: MULTIVITAMINS, THERA 1 EACH TAB PO SCH (09:08)
[2017-07-12] MEDS: HEPARIN SODIUM,PORCINE 5,000 UNIT/ML 1 ML VIAL SQ SCH (09:08)
[2017-07-12] MEDS: ASPIRIN 81 MG PO SCH (09:09)
[2017-07-12] MEDS: COLLAGENASE 250 UNIT/GM OINTMENT 30 GM TUBE TOPICAL SCH (09:09)
[2017-07-12] MEDS: hydrALAZINE HCL 50 MG TAB PO SCH ×2 (09:09→15:05)
[2017-07-12] MEDS: amLODIPine 5 MG TAB PO SCH (09:09)
[2017-07-12] MEDS: BETAMETHASONE DIPROPIONATE 0.05% OINTMENT 45 GM TUBE TOPICAL SCH (09:09)
[2017-07-12] MEDS: INSULIN DETEMIR 100 UNIT/ML 10 ML VIAL SQ SCH (09:11)
--- NOTE | 2017-07-12 10:52 | CDI ---
Documentation Clarification Form Date: 07/12/2016 10:37:00 am CDS/Television Program Director Name: Columba Ashby CCS, CCDS Admit Date: 07/05/2016 Discharge Date: Patient Name: Kat Eckert ATTENTION: The Clinical Documentation Specialists (CDI) and [facility] Coding Staff appreciate your assistance in clarifying documentation. Please respond to the clarification below the line at the bottom and electronically sign. The CDI & [facility] Coding staff will review the response and follow-up if needed. Please note: Queries are made part of the Legal Health Record. If you have any questions, please contact the author of this message via ITS. Dr. Bonilla: Patient presented with a diabetic wound infection of the LLE, failed outpatient treatment. Per your 07/06 consult: Chronic renal insufficiency, complicated. (Nephrology is not consulted). History/Risk Factors: IDDM II, Hypertension, IBS. Clinical Indicators: Diagnosed with acute osteomyelitis & cellulitis of diabetic wound to left lower leg. Current BUN/CR/GFR: 36 / 2. Patients Baseline: BUN/CR/GFR: not documented. Treatment: IV Zosyn, Insulin sq, wound care Patients medications include: Aldactone, Pravachol, Nitro sl, Coreg, Calcitriol , Feosol, Apresoline, Norvasc In order to capture the severity of condition, please clarify if the condition signifies: CKD Stage 1 (GFR > 90) CKD Stage 2 (GFR 60-89) CKD Stage 3 (GFR 30-59) CKD Stage 4 (GFR 15-29) CKD Stage 5 (GFR <15) ESRD Other, please specify Unable to determine Please continue to document in your progress notes and discharge summary in order to capture severity of illness and risk of mortality. Include clinical findings that support your diagnosis. . MTDD
[2017-07-12 11:55] LABS: Glucose,Whole Blood 157 mg/dL (75-99)
[2017-07-12] MEDS: SPIRONOLACTONE 25 MG TAB PO SCH (11:55)
[2017-07-12] MEDS ORDERED: ERTAPENEM 1 GM in SODIUM CHLORIDE 0.9% 50 ML IVPB SCH (12:00)
--- NOTE | 2017-07-12 13:01 | DS ---
DISCHARGE SUMMARY DISCHARGE DIAGNOSES: 1. Cellulitis of the left foot. 2. Osteomyelitis of the left fourth digit tarsometatarsal area. 3. Insulin-dependent diabetes mellitus. 4. Irritable bowel syndrome. 5. Hypertension. 6. Iron deficiency anemia. 7. Generalized debility. 8. Osteoarthritis. 9. Peripheral vascular disease. 10.Diastolic heart failure. 11.Chronic renal insufficiency, stage 3B. ALLERGIES: Allergies include CIPRO, LEVAQUIN, CONTRAST DYE, SULFA ANTIBIOTICS. She has a history of anxiety. MEDICATIONS: Medications will include: 1. Xanax 0.5 q.h.s. 2. Norvasc 5 mg daily. 3. Aspirin 81 mg daily. 4. Diprolene application b.i.d. 5. Calcitriol 0.25 mcg daily. 6. Coreg 3.125 t.i.d. 7. Vitamin D3, 2000 units daily. 8. Santyl application daily. 9. Ertapenem 1gram IV q.24 hours. 10.Ferrous sulfate 325 daily. 11.Hydralazine 50 t.i.d. 12.Levemir 16 units daily. 13.Accu-Chek a.c. and at bedtime. 14.Claritin 10 mg daily. 15. . 16.Nitrostat 0.4 mg sublingual p.r.n. 17.Pravachol 40 mg daily. 18. 1 gram daily for 42 days. CONDITION: Stable. PROGNOSIS: Guarded. Ambulate as tolerated. HOSPITAL COURSE OF EVENTS: This is a white female who was admitted to the hospital with diabetic wound infection of the left foot, was found to have osteomyelitis in the fourth metatarsal. IV Invanz is being hooked up for 42 days. She has history of insulin-dependent diabetes mellitus, hypertension, irritable bowel syndrome, generalized debility, multiple treatments as mentioned above. Her kidney function is stage 3B to chronic renal disease stage IV. She has mild protein calorie malnutrition. She has been improved with IV antibiotics at that time. She will go home with IV antibiotics to the shelter for physical therapy for the next 6 weeks. Follow up with Dr. Bonilla in his office. Follow up with Dr. Scott Sharp in the office. MMODL / IJN: [id number] /
[2017-07-12 14:57] VITALS: BP 136/74; PULSE 81; TEMP 98.3
--- NOTE | 2017-07-12 15:01 | PN ---
PROGRESS NOTE DATE OF SERVICE: 07/12/2017. REASON FOR FOLLOWUP: Left lateral foot wound with secondary osteomyelitis gram-negative mixed joe. INTERVAL HISTORY: The patient is afebrile. She is breathing comfortably. Denies having any chest pain. No shortness of breath or abdominal pain or any worsening pain in the left foot area. EXAMINATION: Blood pressure 141/63 with a pulse of 85, temperature 98.4. She is 92% on room air. General description is an elderly female lying in bed in no distress. RESPIRATORY SYSTEM: Unlabored breathing. Clear to auscultation anteriorly. HEART: S1, S2. Regular rate and rhythm. ABDOMEN: Soft, no tenderness. Left foot wound is currently dressed up with no obvious drainage on the dressing. LABS: No new labs have been obtained today. Wound culture finalized with Enterococcus faecalis that is penicillin sensitive and Serratia marcescens. DIAGNOSTIC IMPRESSION AND PLAN: Patient with left foot wound with underlying osteomyelitis. Culture now finalized with Serratia marcescens and Enterococcus faecalis, penicillin sensitive. The patient is ALLERGIC TO CIPRO, LEVAQUIN AND SULFA. Antibiotic will be adjusted to Invanz 1 g daily. That should cover both the pathogen for a total of 6 weeks with weekly monitoring of CBC, BMP and sed rate. The patient's baseline 30-44. Local wound care with Santyl. She was noticed to have a slight jump in her creatinine yesterday of 2.09 with admission creatinine 1.41. That will put her in CKD stage IV. Advised to obtain a stat BMP and if she has any worsening of her creatinine to hold discharge and have her evaluated by Nephrology. This was communicated to the patient's RN. Continue supportive care. MMODL / IJN: [id number] /
[2017-07-12 15:51] LABS: Calcium 9.1 mg/dL (8.4-10.2); Potassium 4.9 mmol/L (3.5-5.1)
[2017-07-12 17:25] LABS: Glucose,Whole Blood 218 mg/dL (75-99)
--- NOTE | 2017-07-20 10:40 | P.ARTDOP ---
Arterial Doppler LOWER EXTREMITY ARTERIAL DOPPLER: DATE OF SERVICE: 07/06/2017 Reason for study: Status post right BKA. Osteomyelitis left foot. Doppler waveforms: Multiphasic bilaterally throughout. Pulse volume recording: Mild blunting throughout. Toe waveforms are blunted but persistent Pressure gradients: Only at the foot level. Ankle-brachial indices: Greater than 1 bilaterally. Toe pressures: [] on the right, 29 on the left Impression: Suspect diffuse calcific wall disease. Perfusion likely not to be adequate for healing. Clinical correlation recommended.
--- NOTE | 2017-07-26 07:41 | CDI ---
Last Revision, March 2017 Documentation Clarification Form Date: 07/26/17 From: Dot Gerber Phone: If you have a question regarding this query, please contact Sherrie Malin at [phone] between 8am and 5pm Admit Date: 07/05/2017 4:26:00 PM Patient Name: Kat Eckert Visit Number: [id number] Discharge Date: 07/12/17 ATTENTION: The Clinical Documentation Specialists (CDI) and [facility] Coding Staff appreciate your assistance in clarifying documentation. Please respond to the clarification below the line at the bottom and electronically sign. The CDI & [facility] Coding staff will review the response and follow-up if needed. Please note: Queries are made part of the Legal Health Record. If you have any questions, please contact the author of this message via ITS. Dr. Scott Sharp The patient has diabetes, as indicated throughout the chart. The patient was admitted for left leg nonhealing wound with secondary cellulitis and osteomyelitis. History/Risk Factors: Nonhealing wound to the left foot and diabetes. Clinical Indicators: Severe redness to the knee downt to the entire foot. Significant redness, warmth and swelling to the entire left foot up to the knee. Treatment: IV Zosyn In order to capture the severity of Illness and necessary documentation specificity, please clarify if the cellulitis is a manifestation related to the diabetes: Cellulitis related to DM Cellulitis unrelated to DM Other, please specify Unable to Determine MTDD
--- NOTE | 2017-07-29 14:18 | CDI ---
Last Revision, March 2017 Documentation Clarification Form Date: 07/29/17 From: Dot Gerber Phone: If you have a question regarding this query, please contact Sherrie Malin at [phone] between 8am and 5pm Admit Date: 07/05/2017 4:26:00 PM Patient Name: Kat Eckert Visit Number: [id number] Discharge Date: 07/12/17 ATTENTION: The Clinical Documentation Specialists (CDI) and [facility] Coding Staff appreciate your assistance in clarifying documentation. Please respond to the clarification below the line at the bottom and electronically sign. The CDI & [facility] Coding staff will review the response and follow-up if needed. Please note: Queries are made part of the Legal Health Record. If you have any questions, please contact the author of this message via ITS. Dr. Scott Sharp Thank you for signing the previous query. Please document a response for this query before signing it. The patient has diabetes, as indicated throughout the chart. The patient was admitted for left leg nonhealing wound with secondary cellulitis and osteomyelitis. History/Risk Factors: Nonhealing wound to the left foot and diabetes. Clinical Indicators: Severe redness to the knee downt to the entire foot. Significant redness, warmth and swelling to the entire left foot up to the knee. Treatment: IV Zosyn In order to capture the severity of Illness and necessary documentation specificity, please clarify if the cellulitis is a manifestation related to the diabetes: Cellulitis related to DM Cellulitis unrelated to DM Other, please specify Unable to Determine MTDD
--- NOTE | 2017-08-03 09:33 | CDI ---
Last Revision, March 2017 Documentation Clarification Form Date: 08/03/17 From: Dot Gerber Phone: If you have a question regarding this query, please contact Sherrie Malin at [phone] between 8am and 5pm Admit Date: 07/05/2017 4:26:00 PM Patient Name: Kat Eckert Visit Number: [id number] Discharge Date: 07/12/17 ATTENTION: The Clinical Documentation Specialists (CDI) and [facility] Coding Staff appreciate your assistance in clarifying documentation. Please respond to the clarification below the line at the bottom and electronically sign. The CDI & [facility] Coding staff will review the response and follow-up if needed. Please note: Queries are made part of the Legal Health Record. If you have any questions, please contact the author of this message via ITS. Dr. Scott Sharp Thank you for signing your previous query. Please document a response before signing this query. The patient has diabetes, as indicated throughout the chart. The patient was admitted for left leg nonhealing wound with secondary cellulitis and osteomyelitis. History/Risk Factors: Nonhealing wound to the left foot and diabetes. Clinical Indicators: Severe redness to the knee downt to the entire foot. Significant redness, warmth and swelling to the entire left foot up to the knee. Treatment: IV Zosyn In order to capture the severity of Illness and necessary documentation specificity, please clarify if the cellulitis is a manifestation related to the diabetes: Cellulitis related to DM Cellulitis unrelated to DM Other, please specify Unable to Determine MTDD
--- NOTE | 2017-08-03 19:36 | DS ---
DISCHARGE SUMMARY ADDENDUM: DISCHARGE DIAGNOSIS: Cellulitis related to diabetes mellitus. MMODL / IJN: [id number] /
== END 2017-07-12 18:32 | DRG 638 ==
LOC: 4MS4W 16:26
PROVIDERS: ADMIT Family Medicine; ATTEND Family Medicine
PROC: 02HV33Z Insertion of Infusion Device into Superior Vena Cava, Percutaneous Approach (ICD-10-PCS; principal; 2017-07-09 08:00)
DX: E11.69 Type 2 diabetes mellitus with other specified complication (principal); M86.172 Other acute osteomyelitis, left ankle and foot; B37.89 Other sites of candidiasis; L03.116 Cellulitis of left lower limb; I13.0 Hypertensive heart and chronic kidney disease with heart failure and stage 1 through stage 4 chronic kidney disease, or unspecified chronic kidney disease; I50.32 Chronic diastolic (congestive) heart failure; E11.628 Type 2 diabetes mellitus with other skin complications; N18.4 Chronic kidney disease, stage 4 (severe); E11.22 Type 2 diabetes mellitus with diabetic chronic kidney disease; E11.621 Type 2 diabetes mellitus with foot ulcer; E11.51 Type 2 diabetes mellitus with diabetic peripheral angiopathy without gangrene; E11.65 Type 2 diabetes mellitus with hyperglycemia; B96.89 Other specified bacterial agents as the cause of diseases classified elsewhere; D50.9 Iron deficiency anemia, unspecified; E78.5 Hyperlipidemia, unspecified; F41.9 Anxiety disorder, unspecified; K58.0 Irritable bowel syndrome with diarrhea; M19.90 Unspecified osteoarthritis, unspecified site; R53.81 Other malaise; L97.529 Non-pressure chronic ulcer of other part of left foot with unspecified severity; L30.9 Dermatitis, unspecified; Z79.4 Long term (current) use of insulin; Z79.82 Long term (current) use of aspirin; Z79.899 Other long term (current) drug therapy; Z87.891 Personal history of nicotine dependence; Z89.511 Acquired absence of right leg below knee; Z89.422 Acquired absence of other left toe(s); Z88.1 Allergy status to other antibiotic agents; Z88.2 Allergy status to sulfonamides; Z90.49 Acquired absence of other specified parts of digestive tract
CPT/HCPCS: 36556; 76937; 77001; 78315; 80048; 80053; 83036; 83605; 85025; 85049; 85652; 86140; 87070; 87077; 87186; 87205; 93923

== ENCOUNTER 2018-06-26 12:44 | Emergency (ER) | payer MEDICARE, BC ==
[2018-06-26 13:16] VITALS: RESP 18; TEMP 98
[2018-06-26 13:23] LABS: Glucose,Whole Blood 71 mg/dL (75-99)
--- NOTE | 2018-06-26 13:57 | ED ---
Altered Mental Status HPI - General Chief Complaint: Altered Mental Status Stated Complaint: hypoglycemia Time Seen by Provider: 06/26/18 12:59 Source: patient, EMS, RN notes reviewed Mode of arrival: EMS Limitations: no limitations - History of Present Illness Initial Comments: 72-year-old female presents emergency Department via EMS for hyperglycemia. Patient states she took insulin this morning and did not eat. Patient states she started feeling very drowsy and confused. Patient was given glucose by EMS. Patient states that she feels currently normal at this time. Denies any headache, dizziness, chest pain, shortness breath, nausea vomiting. Patient states she is noncompliant with her medications. Patient states that she normally does eat before she takes her insulin. - Related Data Home Medications Medication Instructions Recorded Confirmed amLODIPine [Norvasc] 5 mg PO DAILY 07/05/17 06/26/18 Carvedilol [Coreg] 12.5 mg PO BID 06/26/18 06/26/18 hydrALAZINE HCL [Apresoline] 100 mg PO TID 06/26/18 06/26/18 Previous Rx's Medication Instructions Recorded Cephalexin [Keflex] 500 mg PO Q8HR #21 cap 06/26/18 Allergies Allergy/AdvReac Type Severity Reaction Status Date / Time ciprofloxacin [From Cipro] Allergy Unknown Verified 06/26/18 14:19 Iodinated Contrast- Oral and Allergy Unknown Verified 06/26/18 14:19 IV Dye [Iodinated Contrast Media - IV Dye] levofloxacin [From Levaquin] Allergy Unknown Verified 06/26/18 14:19 Sulfa (Sulfonamide Allergy Unknown Verified 06/26/18 14:19 Antibiotics) Review of Systems ROS Statement: Those systems with pertinent positive or pertinent negative responses have been documented in the HPI. ROS Other: All systems not noted in ROS Statement are negative. Past Medical History Past Medical History: Cancer, Diabetes Mellitus, Hyperlipidemia, Hypertension, [place] Inf[place]ction ([place]) Additional Past Medical History / Comment(s): past rt breast cancer 1998,vertigo, snycope, Vagal response ([facility]), Heart murmur, ibs(norm is loose stool), arthritis,pvd,lt.foot wound Last Myocardial Infarction Date:: 2011 History of Any Multi-Drug Resistant Organisms: None Reported Past Surgical History: Appendectomy, Cholecystectomy, Heart Catheterization With Stent, Hernia Repair, Hysterectomy, Pacemaker Additional Past Surgical History / Comment(s): right below knee amputation,left fifth toe removed, right lumpectomy with lymphnode removal. no iv, shots or bp in rt arm .laser eye sx(retina), cataracts, colonoscopy Past Anesthesia/Blood Transfusion Reactions: No Reported Reaction Date of Last Stent Placement:: 2011 Type of Cardiac Device: Permanent Pacemaker Device Placement Date:: unk Past Psychological History: Anxiety Smoking Status: Never smoker Past Alcohol Use History: None Reported Past Drug Use History: None Reported - Past Family History Mother Family Medical History: Cancer, Diabetes Mellitus, Hypertension, [place] Inf[place]ction ([place]) Additional Family Medical History / Comment(s): heart problems Father Family Medical History: Myocardial Infarction ([place]) General Exam Limitations: no limitations General appearance: alert, in no apparent distress Head exam: Present: atraumatic, normocephalic, normal inspection Eye exam: Present: normal appearance, PERRL, EOMI. Absent: scleral icterus, conjunctival injection, periorbital swelling ENT exam: Present: normal exam, normal oropharynx, mucous membranes moist, TM's normal bilaterally Neck exam: Present: normal inspection, full ROM. Absent: tenderness, meningismus, lymphadenopathy Respiratory exam: Present: normal lung sounds bilaterally. Absent: respiratory distress, wheezes, rales, rhonchi, stridor Cardiovascular Exam: Present: regular rate, normal rhythm, normal heart sounds. Absent: systolic murmur, diastolic murmur, rubs, gallop, clicks Neurological exam: Present: alert, oriented X3, CN II-XII intact Skin exam: Present: warm, dry, intact, normal color. Absent: rash Course Vital Signs 06/26/18 06/26/18 13:11 14:48 Temperature 98.0 F Pulse Rate 80 90 Respiratory 18 18 Rate Blood Pressure 182/86 188/83 O2 Sat by Pulse 100 100 Oximetry Medical Decision Making - Medical Decision Making 72-year-old female presented from it for hypoglycemia. Patient is improved after eating emergency department. She's had no recurrent bouts of hypoglycemia. Patient did complain of some urinary symptoms. Urinalysis shows many WBC clumps. Patient we given Rocephin and discharged on Keflex. Return parameters were discussed. - Lab Data Lab Results 06/26/18 06/26/18 06/26/18 Range/Units 13:21 14:42 15:13 POC Glucose (mg/dL) 71 L 133 H (75-99) mg/dL POC Glu Rn Neonatal ID Klarissa Blair Josephine Rajput Urine Color Light Yellow Urine Appearance Cloudy H (Clear) Urine pH 6.0 (5.0-8.0) Ur Specific [place] 1.012 (1.001-1.035) Urine Protein 2+ H (Negative) Urine Glucose (UA) Negative (Negative) Urine Ketones Negative (Negative) Urine Blood Trace H (Negative) Urine Nitrite Negative (Negative) Urine Bilirubin Negative (Negative) Urine Urobilinogen <2.0 (<2.0) mg/dL Ur Leukocyte Esterase Large H (Negative) Urine WBC Clumps Many H (None) /hpf Ur Squamous Epith Cells 1 (0-4) /hpf Urine Bacteria Moderate H (None) /hpf Urine Mucus Rare H (None) /hpf 06/26/18 Range/Units 15:18 POC Glucose (mg/dL) 204 H (75-99) mg/dL POC Glu Rn Neonatal ID Josephine Rajput Urine Color Urine Appearance (Clear) Urine pH (5.0-8.0) Ur Specific [place] (1.001-1.035) Urine Protein (Negative) Urine Glucose (UA) (Negative) Urine Ketones (Negative) Urine Blood (Negative) Urine Nitrite (Negative) Urine Bilirubin (Negative) Urine Urobilinogen (<2.0) mg/dL Ur Leukocyte Esterase (Negative) Urine WBC Clumps (None) /hpf Ur Squamous Epith Cells (0-4) /hpf Urine Bacteria (None) /hpf Urine Mucus (None) /hpf Disposition Clinical Impression: Hypoglycemia, UTI (urinary tract infection) Disposition: HOME SELF-CARE Condition: Stable Instructions (If sedation given, give patient instructions): Urinary Tract Infection in Women (ED) Additional Instructions: Please return to the Emergency Department if symptoms worsen or any other concerns. Prescriptions: Cephalexin [Keflex] 500 mg PO Q8HR #21 cap Is patient prescribed a controlled substance at d/c from ED?: No Time of Disposition: 15:48
[2018-06-26 14:48] LABS: Glucose,Whole Blood 133 mg/dL (75-99)
[2018-06-26 15:27] LABS: Glucose,Whole Blood 204 mg/dL (75-99)
[2018-06-26 15:32] LABS: Appearance,Urine Cloudy (Clear); Bacteria,Urine Moderate /hpf; Bilirubin,Urine Negative (Negative); Blood,Urine Trace (Negative); Color,Urine Light Yellow; Glucose,Urine (UA) Negative (Negative); Ketones,Urine Negative (Negative); Leukocyte Esterase,Urine Large (Negative); Mucus,Urine Rare /hpf; Nitrite,Urine Negative (Negative); Protein,Urine 2+ (Negative); Specific Gravity,Urine 1.012 (1.001-1.035); Squamous Epithelial Cell,Urine 1 /hpf (0-4); Urobilinogen,Urine <2.0 mg/dL (<2.0)
[2018-06-26] MEDS ORDERED: cefTRIAXone IN SWFI 1,000 MG/10 ML SYRINGE IVP STA (15:47)
[2018-06-26 16:08] VITALS: BP 154/72; PULSE 72
== END 2018-06-26 16:26 | disposition home or self-care (01) ==
LOC: EC 12:44
DX: E11.649 Type 2 diabetes mellitus with hypoglycemia without coma (principal); N39.0 Urinary tract infection, site not specified; I10 Essential (primary) hypertension; I25.2 Old myocardial infarction; Z85.3 Personal history of malignant neoplasm of breast; Z90.49 Acquired absence of other specified parts of digestive tract; Z90.710 Acquired absence of both cervix and uterus; Z95.0 Presence of cardiac pacemaker; Z95.5 Presence of coronary angioplasty implant and graft; Z89.511 Acquired absence of right leg below knee; Z89.422 Acquired absence of other left toe(s); Z98.890 Other specified postprocedural states; Z79.899 Other long term (current) drug therapy; Z88.1 Allergy status to other antibiotic agents; Z88.2 Allergy status to sulfonamides; Z91.041 Radiographic dye allergy status
CPT/HCPCS: 36415; 81001; 87086; 99285; 96374; J0696; 87077; 87186

== ENCOUNTER 2019-07-25 15:42 | Inpatient (IN) | payer MEDICARE, BC ==
[2019-07-25] MEDS ORDERED: SODIUM CHLORIDE 0.9% 500 ML 500 ML IV ONE (15:51)
--- NOTE | 2019-07-25 15:56 | ED ---
General Adult HPI - General Chief complaint: Altered Mental Status Stated complaint: Altered Mental Time Seen by Provider: 07/25/19 15:42 Source: patient, EMS, RN notes reviewed, old records reviewed Mode of arrival: EMS Limitations: altered mental status - History of Present Illness Initial comments: This is a 73-year-old female presents emergency Department by EMS. According to EMS the sister called her yesterday and talked on the phone and then today was trying to call her again and she was not answering so she sent the neighbor over to the apartment. Patient was found on the ground patient states she has been there since yesterday when she fell because her prosthetic leg on her right does not fit appropriately. Patient denies any complaints currently. Patient states she did not injure herself in the fall. Patient denies any headache patient denies any numbness or weakness. Patient denies chest pain difficulty breathing shortness of breath. Patient denies any recent fever chills or cough per patient denies any abdominal pain patient denies nausea vomiting diarrhea. Patient states she is a diabetic. According to EMS the patient seemed a little confused at the scene. EMS stated that the sister also felt she was confused about pertinent information is what seemed to know the date and time and who she was.. Currently the patient is alert and oriented 3 and she does states she remembers falling yesterday and being on the floor since then. But again sister indicated she seemed confused to her but sister is unable to come and see her in the hospital. - Related Data Home Medications Medication Instructions Recorded Confirmed amLODIPine [Norvasc] 5 mg PO DAILY 07/05/17 06/26/18 Carvedilol [Coreg] 12.5 mg PO BID 06/26/18 06/26/18 hydrALAZINE HCL [Apresoline] 100 mg PO TID 06/26/18 06/26/18 Previous Rx's Medication Instructions Recorded Cephalexin [Keflex] 500 mg PO Q8HR #21 cap 06/26/18 Allergies Allergy/AdvReac Type Severity Reaction Status Date / Time ciprofloxacin [From Cipro] Allergy Unknown Verified 07/25/19 15:52 Iodinated Contrast Media Allergy Unknown Verified 07/25/19 15:52 [Iodinated Contrast Media - IV Dye] levofloxacin [From Levaquin] Allergy Unknown Verified 07/25/19 15:52 Sulfa (Sulfonamide Allergy Unknown Verified 07/25/19 15:52 Antibiotics) Review of Systems ROS Statement: Those systems with pertinent positive or pertinent negative responses have been documented in the HPI. ROS Other: All systems not noted in ROS Statement are negative. Past Medical History Past Medical History: Cancer, Diabetes Mellitus, Hyperlipidemia, Hypertension, Myocardial Infarction ([place]) Additional Past Medical History / Comment(s): past rt breast cancer 1999,vertigo, snycope, Vagal response ([facility]), Heart murmur, ibs(norm is loose stool), arthritis,pvd,lt.foot wound Last Myocardial Infarction Date:: 2011 History of Any Multi-Drug Resistant Organisms: None Reported Past Surgical History: Appendectomy, Cholecystectomy, Heart Catheterization With Stent, Hernia Repair, Hysterectomy, Pacemaker Additional Past Surgical History / Comment(s): right below knee amputation,left fifth toe removed, right lumpectomy with lymphnode removal. no iv, shots or bp in rt arm .laser eye sx(retina), cataracts, colonoscopy Past Anesthesia/Blood Transfusion Reactions: No Reported Reaction Date of Last Stent Placement:: 2011 Type of Cardiac Device: Permanent Pacemaker Device Placement Date:: Past Psychological History: Anxiety Smoking Status: Never smoker Past Alcohol Use History: None Reported Past Drug Use History: None Reported - Past Family History Mother Family Medical History: Cancer, Diabetes Mellitus, Hypertension, Myocardial Infarction ([place]) Additional Family Medical History / Comment(s): heart problems Father Family Medical History: Myocardial Infarction ([place]) General Exam - General Exam Comments Initial Comments: GENERAL: Patient is well-developed and well-nourished. Patient is nontoxic and well- hydrated and is in mild distress. ENT: Neck is soft and supple. No significant lymphadenopathy is noted. Oropharynx is clear. Moist mucous membranes. Neck has full range of motion without eliciting any pain. EYES: The sclera were anicteric and conjunctiva were pink and moist. Extraocular movements were intact and pupils were equal round and reactive to light. Eyelids were unremarkable. PULMONARY: Unlabored respirations. Good breath sounds bilaterally. No audible rales rhonchi or wheezing was noted. CARDIOVASCULAR: There is a regular rate and rhythm without any murmurs gallops or rubs. ABDOMEN: Soft and nontender with normal bowel sounds. SKIN: Skin is clear with no lesions or rashes and otherwise unremarkable. NEUROLOGIC: Patient is alert and oriented x3. Cranial nerves II through XII are grossly intact. Motor and sensory are also intact. Normal speech, volume and content. Symmetrical smile. MUSCULOSKELETAL: Patient has a BKA on the right LYMPHATICS: No significant lymphadenopathy is noted PSYCHIATRIC: Normal psychiatric evaluation. Limitations: altered mental status Course Vital Signs 07/25/19 15:44 Temperature 98.2 F Pulse Rate 90 Respiratory 18 Rate Blood Pressure 118/100 O2 Sat by Pulse 97 Oximetry Medical Decision Making - Medical Decision Making EKG shows normal sinus rhythm at 92 bpm IA interval 160 QRS is 88 QT interval 360 QTC is 445. Patient's EKG shows no ST segment elevation Patient is urinary tract infection I started the patient on Rocephin. Patient's chest x-ray shows possible pneumonia as well. I spoke with sounds physicians accepted the admission I wrote admitting orders. - Lab Data Result diagrams: 07/25/19 16:34 07/25/19 16:34 Lab Results 07/25/19 07/25/19 07/25/19 Range/Units 16:34 16:34 16:34 WBC 13.6 H (3.8-10.6) k/uL RBC 4.69 (3.80-5.40) m/uL Hgb 13.1 (11.4-16.0) gm/dL Hct 40.9 (34.0-46.0) % MCV 87.3 (80.0-100.0) fL MCH 27.9 (25.0-35.0) pg MCHC 32.0 (31.0-37.0) g/dL RDW 13.2 (11.5-15.5) % Plt Count 260 (150-450) k/uL Neutrophils % 90 % Lymphocytes % 3 % Monocytes % 5 % Eosinophils % 0 % Basophils % 0 % Neutrophils # 12.2 H (1.3-7.7) k/uL Lymphocytes # 0.4 L (1.0-4.8) k/uL Monocytes # 0.7 (0-1.0) k/uL Eosinophils # 0.0 (0-0.7) k/uL Basophils # 0.0 (0-0.2) k/uL PT 9.6 (9.0-12.0) sec INR 0.9 (<1.2) APTT 22.1 (22.0-30.0) sec Sodium 138 (137-145) mmol/L Potassium 4.7 (3.5-5.1) mmol/L Chloride 107 (98-107) mmol/L Carbon Dioxide 21 L (22-30) mmol/L Anion Gap 10 mmol/L BUN 33 H (7-17) mg/dL Creatinine 1.86 H (0.52-1.04) mg/dL Est GFR (CKD-EPI)AfAm 30 (>60 ml/min/1.73 sqM) Est GFR (CKD-EPI)NonAf 26 (>60 ml/min/1.73 sqM) Glucose 206 H (74-99) mg/dL Calcium 9.1 (8.4-10.2) mg/dL Total Bilirubin 0.5 (0.2-1.3) mg/dL AST 28 (14-36) U/L ALT 12 (4-34) U/L Alkaline Phosphatase 160 H (38-126) U/L Creatine Kinase 213 H (30-135) U/L Troponin I (0.000-0.034) ng/mL Total Protein 7.2 (6.3-8.2) g/dL Albumin 3.9 (3.5-5.0) g/dL Urine Color Urine Appearance (Clear) Urine pH (5.0-8.0) Ur Specific [place] (1.001-1.035) Urine Protein (Negative) Urine Glucose (UA) (Negative) Urine Ketones (Negative) Urine Blood (Negative) Urine Nitrite (Negative) Urine Bilirubin (Negative) Urine Urobilinogen (<2.0) mg/dL Ur Leukocyte Esterase (Negative) Urine RBC (0-5) /hpf Urine WBC (0-5) /hpf Urine WBC Clumps (None) /hpf Ur Squamous Epith Cells (0-4) /hpf Urine Bacteria (None) /hpf Urine Yeast (Budding) (None) /hpf Urine Opiates Screen (NotDetected) Ur Oxycodone Screen (NotDetected) Urine Methadone Screen (NotDetected) Ur Propoxyphene Screen (NotDetected) Ur Barbiturates Screen (NotDetected) U Tricyclic Antidepress (NotDetected) Ur Phencyclidine Scrn (NotDetected) Ur Amphetamines Screen (NotDetected) U Methamphetamines Scrn (NotDetected) U Benzodiazepines Scrn (NotDetected) Urine Cocaine Screen (NotDetected) U Marijuana (THC) Screen (NotDetected) 07/25/19 07/25/19 Range/Units 16:34 18:08 WBC (3.8-10.6) k/uL RBC (3.80-5.40) m/uL Hgb (11.4-16.0) gm/dL Hct (34.0-46.0) % MCV (80.0-100.0) fL MCH (25.0-35.0) pg MCHC (31.0-37.0) g/dL RDW (11.5-15.5) % Plt Count (150-450) k/uL Neutrophils % % Lymphocytes % % Monocytes % % Eosinophils % % Basophils % % Neutrophils # (1.3-7.7) k/uL Lymphocytes # (1.0-4.8) k/uL Monocytes # (0-1.0) k/uL Eosinophils # (0-0.7) k/uL Basophils # (0-0.2) k/uL PT (9.0-12.0) sec INR (<1.2) APTT (22.0-30.0) sec Sodium (137-145) mmol/L Potassium (3.5-5.1) mmol/L Chloride (98-107) mmol/L Carbon Dioxide (22-30) mmol/L Anion Gap mmol/L BUN (7-17) mg/dL Creatinine (0.52-1.04) mg/dL Est GFR (CKD-EPI)AfAm (>60 ml/min/1.73 sqM) Est GFR (CKD-EPI)NonAf (>60 ml/min/1.73 sqM) Glucose (74-99) mg/dL Calcium (8.4-10.2) mg/dL Total Bilirubin (0.2-1.3) mg/dL AST (14-36) U/L ALT (4-34) U/L Alkaline Phosphatase (38-126) U/L Creatine Kinase (30-135) U/L Troponin I 0.019 (0.000-0.034) ng/mL Total Protein (6.3-8.2) g/dL Albumin (3.5-5.0) g/dL Urine Color Light Yellow Urine Appearance Cloudy H (Clear) Urine pH 6.0 (5.0-8.0) Ur Specific [place] 1.012 (1.001-1.035) Urine Protein 2+ H (Negative) Urine Glucose (UA) 3+ H (Negative) Urine Ketones Trace H (Negative) Urine Blood Small H (Negative) Urine Nitrite Negative (Negative) Urine Bilirubin Negative (Negative) Urine Urobilinogen <2.0 (<2.0) mg/dL Ur Leukocyte Esterase Large H (Negative) Urine RBC 2 (0-5) /hpf Urine WBC >182 H (0-5) /hpf Urine WBC Clumps Many H (None) /hpf Ur Squamous Epith Cells <1 (0-4) /hpf Urine Bacteria Many H (None) /hpf Urine Yeast (Budding) Few H (None) /hpf Urine Opiates Screen Not Detected (NotDetected) Ur Oxycodone Screen Not Detected (NotDetected) Urine Methadone Screen Not Detected (NotDetected) Ur Propoxyphene Screen Not Detected (NotDetected) Ur Barbiturates Screen Not Detected (NotDetected) U Tricyclic Antidepress Not Detected (NotDetected) Ur Phencyclidine Scrn Not Detected (NotDetected) Ur Amphetamines Screen Not Detected (NotDetected) U Methamphetamines Scrn Not Detected (NotDetected) U Benzodiazepines Scrn Not Detected (NotDetected) Urine Cocaine Screen Not Detected (NotDetected) U Marijuana (THC) Screen Not Detected (NotDetected) Disposition Clinical Impression: Altered mental status, Urinary tract infection, Pneumonia Disposition: ADMITTED IP TO THIS [facility] Referrals: Eleuterio Bray MD [Primary Care Provider] - 1-2 days Time of Disposition: 19:23
[2019-07-25 16:52] LABS: Basophils % (A) 0 %; Eosinophils % (A) 0 %; HCT 40.9 % (34.0-46.0); HGB 13.1 gm/dL (11.4-16.0); Lymphocytes # (A) 0.4 k/uL (1.0-4.8); Lymphocytes % (A) 3 %; MCH 27.9 pg (25.0-35.0); MCV 87.3 fL (80.0-100.0); Mean Platelet Volume 7.1; Monocytes # (A) 0.7 k/uL (0-1.0); Monocytes % (A) 5 %; Neutrophils # (A) 12.2 k/uL (1.3-7.7); Neutrophils % (A) 90 %; Platelet Count 260 k/uL (150-450); RBC 4.69 m/uL (3.80-5.40); RDW 13.2 % (11.5-15.5); WBC 13.6 k/uL (3.8-10.6)
--- NOTE | 2019-07-25 17:03 | CT ---
EXAMINATION TYPE: CT brain wo con DATE OF EXAM: 07/25/2019 COMPARISON: To 116 HISTORY: Patient poor historian CT DLP: 1084.[address] of the brain was performed. The ventricles, basal cisterns and sulci overlying the cerebral convexities demonstrate moderate enla rgement. There is no evidence for intracranial hemorrhage or sulcal effacement. There is decreased attenuation about the periventricular white matter and deep white matter of both c erebral hemispheres, compatible with chronic small vessel ischemia. Differential diagnosis does inclu de demyelination. No mass effects are seen.No midline shift. Osseous calvarium is intact. If symptoms persist consider MRI. IMPRESSION: 1. Correlate for normal pressure hydrocephalus. No acute intracranial process seen.
[2019-07-25 17:09] LABS: INR 0.9 (<1.2); Partial Thromboplastin Time 22.1 sec (22.0-30.0); Prothrombin Time 9.6 sec (9.0-12.0)
[2019-07-25 17:10] LABS: Albumin 3.9 g/dL (3.5-5.0); Calcium 9.1 mg/dL (8.4-10.2); Potassium 4.7 mmol/L (3.5-5.1); Total Bilirubin 0.5 mg/dL (0.2-1.3); Total Protein 7.2 g/dL (6.3-8.2)
--- NOTE | 2019-07-25 17:12 | XR ---
EXAMINATION TYPE: XR chest 2V DATE OF EXAM: 07/25/2019 COMPARISON: May 08, 2015 HISTORY: Shortness of breath TECHNIQUE: Frontal and lateral views of the chest are obtained. FINDINGS: Scattered senescent parenchymal changes noted. Hyperinflation compatible with COPD. Increased density right medial lung base may reflect developing infiltrate. Correlate clinically. Heart size is stable. Mediastinal structures are stable and grossly unremarkable. No evidence for hilar prominence. Degenerative changes dorsal spine. IMPRESSION: 1. Increased density right medial lung base may reflect developing infiltrate. Correlate clinically.
[2019-07-25 18:27] LABS: Appearance,Urine Cloudy (Clear); Bacteria,Urine Many /hpf; Bilirubin,Urine Negative (Negative); Blood,Urine Small (Negative); Budding Yeast,Urine Few /hpf; Color,Urine Light Yellow; Glucose,Urine (UA) 3+ (Negative); Ketones,Urine Trace (Negative); Leukocyte Esterase,Urine Large (Negative); Nitrite,Urine Negative (Negative); Protein,Urine 2+ (Negative); RBC,Urine 2 /hpf (0-5); Specific Gravity,Urine 1.012 (1.001-1.035); Squamous Epithelial Cell,Urine <1 /hpf (0-4); Urobilinogen,Urine <2.0 mg/dL (<2.0); WBC,Urine >182 /hpf (0-5)
[2019-07-25 18:30] LABS: Amphetamine Screen,Urine Not Detected (NotDetected); Barbiturate Screen,Urine Not Detected (NotDetected); Benzodiazepines Screen,Urine Not Detected (NotDetected); Cocaine Screen,Urine Not Detected (NotDetected); Methadone Screen, Urine Not Detected (NotDetected); Opiate Screen,Urine Not Detected (NotDetected); Oxycodone Screen, Urine Not Detected (NotDetected); Phencyclidine Screen,Urine Not Detected (NotDetected); Tricyclic Antidepressant,Urine Not Detected (NotDetected); Urn Cannabinoid Scrn Not Detected (NotDetected)
[2019-07-25] MEDS ORDERED: cefTRIAXone IN SWFI 1,000 MG/10 ML SYRINGE IVP STA (18:42)
[2019-07-25] MEDS ORDERED: AZITHROMYCIN 500 MG in SODIUM CHLORIDE 0.9% 250 ML IVPB STA (19:23)
[2019-07-25] MEDS ORDERED: PNEUMONIA PROTOCOL UTILIZED 1 EACH MISC PO PRN (19:23)
[2019-07-25] MEDS ORDERED: hydrALAZINE HCL 20 MG/ML 1 ML VIAL IVP STA (20:26)
[2019-07-25] MEDS ORDERED: ONDANSETRON 4 MG/2 ML VIAL IVP STA (20:27)
[2019-07-25] MEDS ORDERED: FLUTICASONE 50MCG/SPRAY NASAL 16GM EA NOSTRIL PRN (21:53)
[2019-07-25] MEDS ORDERED: PROPYLENE GLYCOL BOTH EYES SCH (22:00)
[2019-07-25] MEDS ORDERED: [UNRECOGNIZED DRUG - OTHER] BOTH EYES SCH (22:00)
[2019-07-25] MEDS ORDERED: PEG BOTH EYES SCH (22:00)
--- NOTE | 2019-07-25 22:02 | P.HPIM ---
History of Present Illness H&P Date: 07/25/19 The patient is a 73-year-old female with a PMH of type 2 DM, CKD stage IV, peripheral vascular disease status post right BKA, coronary artery disease status post multiple MIs with stents, hypertension, hyperlipidemia, and history of breast cancer was brought into the ED via EMS after she was found on the ground in her home. As per the ED documentation, the patient's sister called her and the patient did not answer, at which time she became concerned and asked her neighbor to go check in on her, who found the patient on the floor. The sister had reportedly spoken with the patient the day prior at which time the patient was at her baseline. The patient was found to be somewhat confused on t he ground, and reported that she had fallen due to her prosthetic being loose the day prior and had been on the ground since. Over the sister of the EMS reported that the patient appeared to be somewhat confused at the scene and then subsequently in the ED. At time of the interview, the patient reported that she remembers falling and not being able to get up yesterday, and that it was due to her prosthetic. She denied head trauma, and did endorse hitting her right hip, though notes that her pain has subsided. She also endorsed that for the past few days she has had malodorous urine which is consistent with her history of multiple UTIs. The patient also endorsed a mild cough over the past few days, productive of whitish phlegm. Patient states that she lives by herself though does have some help with aides multiple times a week. She notes that she is typically able to manage things at home pretty well. She otherwise denied chest pain, shortness of breath, sore throat, or sick contacts. She also denied fever, chills, nausea, vomiting, or diarrhea. She denied headache or visual d isturbance, weakness, or numbness. She underwent an extensive evaluation in the emergency room with a brain CT that was unremarkable. Chest x-ray revealed a right medial lung base increased density though otherwise unremarkable. EKG revealed normal sinus rhythm at 92 bpm with LVH and no ST/T-wave changes indicative of ischemia noted. Laboratory evaluation revealed a WBC count of 13.6, UA consistent with UTI, CK 213, alkaline phosphatase 160, troponin 0.019, BUN 33, creatinine 1.86, and a CO2 of 21. Sodium was 138, potassium 4.7, chloride 107, glucose 206, hemoglobin 13.1, and platelets 260. Patient is being admitted to the medicine service for further management of altered mentation in setting of UTI. Review of Systems Pertinent positives and negatives as discussed in HPI, a complete review of systems was performed and all other systems are negative. Past Medical History Past Medical History: Cancer, Diabetes Mellitus, Hyperlipidemia, Hypertension, Myocardial Infarction (DC) Additional Past Medical History / Comment(s): past rt breast cancer 1998,vertigo, snycope, Vagal response ([facility]), Heart murmur, ibs(norm is loose stool), arthritis,pvd,lt.foot wound Last Myocardial Infarction Date:: 2011 History of Any Multi-Drug Resistant Organisms: None Reported Past Surgical History: Appendectomy, Cholecystectomy, Heart Catheterization With Stent, Hernia Repair, Hysterectomy, Pacemaker Additional Past Surgical History / Comment(s): right below knee amputation,left fifth toe removed, right lumpectomy with lymphnode removal. no iv, shots or bp in rt arm .laser eye sx(retina), cataracts, colonoscopy Past Anesthesia/Blood Transfusion Reactions: No Reported Reaction Date of Last Stent Placement:: 2011 Type of Cardiac Device: Permanent Pacemaker Device Placement Date:: Past Psychological History: Anxiety Smoking Status: Never smoker Past Alcohol Use History: None Reported Past Drug Use History: None Reported - Past Family History Mother Family Medical History: Cancer, Diabetes Mellitus, Hypertension, Myocardial Infarction (DC) Additional Family Medical History / Comment(s): heart problems Father Family Medical History: Myocardial Infarction (DC) Medications and Allergies Home Medications Medication Instructions Recorded Confirmed Type amLODIPine [Norvasc] 5 mg PO PC-LUNCH 07/05/17 07/25/19 History Carvedilol [Coreg] 6.25 mg PO BID 07/25/19 07/25/19 History Fluticasone Nasal Guy [Flonase 1 spray EA NOSTRIL DAILY PRN 07/25/19 07/25/19 History Nasal Guy] Insulin Glargine [Lantus] 12 unit SQ DAILY 07/25/19 07/25/19 History Ipratropium [place] 0.06%Nasal 1 spray EA NOSTRIL DAILY PRN 07/25/19 07/25/19 History [Atrovent Nasal 0.06%] Multivitamins, Thera [Multivitamin 1 tab PO DAILY 07/25/19 07/25/19 History (formulary)] Propylene Glycol/Peg 400/Pf 1 dropper BOTH EYES TID 07/25/19 07/25/19 History [Systane 0.3-0.4% Eye Drops] Allergies Allergy/AdvReac Type Severity Reaction Status Date / Time ciprofloxacin [From Cipro] Allergy Unknown Verified 07/25/19 19:59 Iodinated Contrast Media Allergy Unknown Verified 07/25/19 19:59 [Iodinated Contrast Media - IV Dye] levofloxacin [From Levaquin] Allergy Unknown Verified 07/25/19 19:59 Sulfa (Sulfonamide Allergy Unknown Verified 07/25/19 19:59 Antibiotics) Physical Exam Vitals: Vital Signs Temp Pulse Resp BP Pulse Ox 07/25/19 20:55 154/70 07/25/19 20:40 82 17 178/81 97 07/25/19 20:00 98.2 F 87 18 182/94 99 07/25/19 15:44 98.2 F 90 18 118/100 97 Intake and Output 07/25/19 07/25/19 07/25/19 06:59 14:59 22:59 Other: Weight 68.039 kg General: Elderly female, non toxic, no distress, appears at stated age, normal weight Derm: no unusual rashes/lesions no unusual ecchymoses, warm, dry Head: atraumatic, normocephalic, symmetric Eyes: EOMI, no lid lag, anicteric sclera, pupils equal round reactive to light ENT: Nose and ears atraumatic, no thrush, no pharyngeal erythema Neck: No thyromegaly, no cervical lymphadenopathy, trachea midline, supple Mouth: no lip lesion, mucus membranes moist Cardiovascular: S1S2 reg, systolic murmur throughout, positive posterior tibial pulse on L side, no edema, capillary refill less than 2 seconds Lungs: CTA bilateral, no rhonchi, no rales , no accessory muscle use Abdominal: soft, nontender to palpation, no guarding, no appreciable organomegaly, normal bowel sounds Ext: no gross muscle atrophy, muscle strength 3+ out of 5 in all 4 extremities grossly, no contractures, R BKA Neuro: CN II-XI grossly intact, light touch intact all 4 extremities, finger to nose within normal limits, Psych: Alert, oriented to person, place, and time. Results CBC & Chem 7: 07/25/19 16:34 07/25/19 16:34 Labs: Abnormal Lab Results - Last 24 Hours (Table) 07/25/19 07/25/19 07/25/19 Range/Units 16:34 16:34 18:08 WBC 13.6 H (3.8-10.6) k/uL Neutrophils # 12.2 H (1.3-7.7) k/uL Lymphocytes # 0.4 L (1.0-4.8) k/uL Carbon Dioxide 21 L (22-30) mmol/L BUN 33 H (7-17) mg/dL Creatinine 1.86 H (0.52-1.04) mg/dL Glucose 206 H (74-99) mg/dL Alkaline Phosphatase 160 H (38-126) U/L Creatine Kinase 213 H (30-135) U/L Urine Appearance Cloudy H (Clear) Urine Protein 2+ H (Negative) Urine Glucose (UA) 3+ H (Negative) Urine Ketones Trace H (Negative) Urine Blood Small H (Negative) Ur Leukocyte Esterase Large H (Negative) Urine WBC >182 H (0-5) /hpf Urine WBC Clumps Many H (None) /hpf Urine Bacteria Many H (None) /hpf Urine Yeast (Budding) Few H (None) /hpf Assessment and Plan Plan: UTI, with AMS now resolved -Continue with ceftriaxone 1 g daily -Follow up urine and blood cultures -Monitor leukocytosis with daily CBC Debility -PT consult R sided infiltrate with mild cough, likely developing CAP -Will treat with Azithromycin for now with on-going Ceftriaxone -Check Coronavirus pcr Elevated CK, mild rhabdoyolysis -Monitor to resolution -Hold off on IVFs for now CKD stage IV -At baseline HTN -C/w home meds: Norvvasc, Coreg Type 2 DM -RONAN with FS -C/w Levemir 10 U qhs (takes Lantus 12 U qhs at home) CAD s/p cath and stenting (2011) -Unclear why patient is not on ASA or Statin -Patient previously seen by Cardiology in 2016 and was on ASA 81 mg and Pravachol 40 mg qd -Consider calling PMD (Dr Bray) in am to inquire DVT prophylaxis -Heparin subq The patient is admitted with an anticipated greater than 2 midnight stay for evaluation of UTI, Debility CODE STATUS: Full Code Discussed with: Patient Anticipated discharge date: 2-[address]: Home A total of 40 minutes was spent on the care of this complex patient more than 50% of the time was spent in counseling and care coordination.
--- NOTE | 2019-07-25 22:12 | P.PN ---
Progress Note - Text Progress Note Date: 07/25/19 Advanced Care Planning Active Diagnosis: UTI Persons present: Patient Summary: Discussed the patient's goals of care in great detail. Explained to the patient regarding cardiac arrest, CPR, and use of life-support. The patient stated that she previously has filled out a living will, and that her sister is her healthcare proxy. She reports that at her age, she is certainly concerned about her quality of life due to her multiple comorbid conditions. She states that she will most likely wish to be a no code, though is not confident about her decision as of yet since she would like to discuss it with her sister. Advised the patient to let us know once she has made a decision. She would like to be kept a Full-Code for now. Time spent: Total time spent face to face in education and discussion directly related to advanced care plannin minutes
--- NOTE | 2019-07-25 22:23 | XR ---
EXAMINATION TYPE: XR Hip Limited RT, one view DATE OF EXAM: 07/25/2019 Comparison: None Clinical History: 73-year-old female Portable exam, pain s/p fall Findings: Marked osteopenia. Vascular calcifications. Mild/moderate degenerative change of the right hip. No di splaced fracture seen on this single AP view. Impression: Marked osteopenia limiting assessment. No obvious displaced fractures. If the patient is nonweightbea ring or there is concern for an occult osseous injury, MRI can provide more sensitive evaluation.
[2019-07-25] MEDS: ACETAMINOPHEN TAB 325 MG TAB PO PRN (23:08)
[2019-07-25] MEDS: HEPARIN SODIUM,PORCINE 5,000 UNIT/ML 1 ML VIAL SQ SCH (23:09)
[2019-07-25] MEDS: INSULIN DETEMIR (LEVEMIR) 100 UNIT/ML SYR SQ SCH (23:09)
[2019-07-26 07:09] LABS: Glucose,Whole Blood 114 mg/dL (75-99)
[2019-07-26] MEDS: INSULIN ASPART (NovoLOG) 100 UNIT/ML VIAL SQ SCH ×3 (07:12→17:16)
--- NOTE | 2019-07-26 07:36 | XR ---
EXAMINATION TYPE: XR chest 2V DATE OF EXAM: 07/26/2019 COMPARISON: Chest x-ray from one day earlier. HISTORY: Pneumonia and abnormal recent x-ray. TECHNIQUE: Frontal and lateral views of the chest are obtained. FINDINGS: Persistent cardiomegaly with dual lead pacemaker. Osseous structures remain demineralized. Improved aeration right lung base. No new focal airspace opacity, pleural effusion, or pneumothorax s een bilaterally. IMPRESSION: Improved aeration right lung base. Cardiomegaly without new acute infiltrate.
[2019-07-26 08:05] LABS: HCT 37.1 % (34.0-46.0); HGB 11.8 gm/dL (11.4-16.0); MCH 27.3 pg (25.0-35.0); MCHC 31.7 g/dL (31.0-37.0); MCV 86.2 fL (80.0-100.0); Mean Platelet Volume 7.5; Platelet Count 286 k/uL (150-450); RDW 13.2 % (11.5-15.5); WBC 8.4 k/uL (3.8-10.6)
[2019-07-26 08:10] LABS: Albumin 3.3 g/dL (3.5-5.0); Calcium 8.8 mg/dL (8.4-10.2); Potassium 4.4 mmol/L (3.5-5.1); Total Bilirubin 0.3 mg/dL (0.2-1.3); Total Protein 6.5 g/dL (6.3-8.2)
[2019-07-26] MEDS: HEPARIN SODIUM,PORCINE 5,000 UNIT/ML 1 ML VIAL SQ SCH ×2 (09:03→16:13)
[2019-07-26] MEDS: MULTIVITAMINS, THERA 1 EACH TAB PO SCH (09:04)
[2019-07-26] MEDS: CARVEDILOL 6.25 MG TAB PO SCH ×2 (09:04→17:16)
[2019-07-26 11:30] LABS: Glucose,Whole Blood 178 mg/dL (75-99)
--- NOTE | 2019-07-26 11:46 | P.PN ---
Subjective The patient is a 73-year-old female with a PMH of type 2 DM, CKD stage IV, peripheral vascular disease status post right BKA, coronary artery disease status post multiple MIs with stents, hypertension, hyperlipidemia, and history of breast cancer was brought into the ED via EMS after she was found on the ground in her home. She is currently admitted to the hospital for treatment of a UTI. Patient is feeling well today. She does not have any specific complaints. Objective - Vital Signs Vital signs: Vital Signs Temp 98.8 F 07/26/19 07:00 Pulse 72 07/26/19 08:00 Resp 19 07/26/19 08:00 BP 154/73 07/26/19 07:00 Pulse Ox 92 L 07/26/19 07:00 Intake & Output 07/25/19 07/26/19 07/26/19 18:59 06:59 18:59 Weight 68.039 kg 68.039 kg - Exam General: The patient is awake and alert, in no distress Eye: there is normal conjunctiva bilaterally. Neck: The neck is supple, there is no JVD. Cardiovascular: Normal S1-S2, no S3-S4, no murmurs. Respiratory: Lungs clear to auscultation bilaterally Gastrointestinal: Abdomen is soft, nontender Musculoskeletal: There is no pedal edema. Right BKA Neurological:. Speech is normal. Skin: Skin is warm and dry - Labs CBC & Chem 7: 07/26/19 07:35 07/26/19 07:35 Labs: Abnormal Lab Results - Last 24 Hours (Table) 07/25/19 07/25/19 07/25/19 Range/Units 16:34 16:34 18:08 WBC 13.6 H (3.8-10.6) k/uL Neutrophils # 12.2 H (1.3-7.7) k/uL Lymphocytes # 0.4 L (1.0-4.8) k/uL Chloride (98-107) mmol/L Carbon Dioxide 21 L (22-30) mmol/L BUN 33 H (7-17) mg/dL Creatinine 1.86 H (0.52-1.04) mg/dL Glucose 206 H (74-99) mg/dL POC Glucose (mg/dL) (75-99) mg/dL Alkaline Phosphatase 160 H (38-126) U/L Creatine Kinase 213 H (30-135) U/L Albumin (3.5-5.0) g/dL Urine Appearance Cloudy H (Clear) Urine Protein 2+ H (Negative) Urine Glucose (UA) 3+ H (Negative) Urine Ketones Trace H (Negative) Urine Blood Small H (Negative) Ur Leukocyte Esterase Large H (Negative) Urine WBC >182 H (0-5) /hpf Urine WBC Clumps Many H (None) /hpf Urine Bacteria Many H (None) /hpf Urine Yeast (Budding) Few H (None) /hpf 07/26/19 07/26/19 07/26/19 Range/Units 06:53 07:35 11:29 WBC (3.8-10.6) k/uL Neutrophils # (1.3-7.7) k/uL Lymphocytes # (1.0-4.8) k/uL Chloride 112 H (98-107) mmol/L Carbon Dioxide 20 L (22-30) mmol/L BUN 38 H (7-17) mg/dL Creatinine 2.15 H (0.52-1.04) mg/dL Glucose 114 H (74-99) mg/dL POC Glucose (mg/dL) 114 H 178 H (75-99) mg/dL Alkaline Phosphatase (38-126) U/L Creatine Kinase (30-135) U/L Albumin 3.3 L (3.5-5.0) g/dL Urine Appearance (Clear) Urine Protein (Negative) Urine Glucose (UA) (Negative) Urine Ketones (Negative) Urine Blood (Negative) Ur Leukocyte Esterase (Negative) Urine WBC (0-5) /hpf Urine WBC Clumps (None) /hpf Urine Bacteria (None) /hpf Urine Yeast (Budding) (None) /hpf Microbiology - Last 24 Hours (Table) 07/25/19 18:08 Urine Culture - Preliminary Urine,Voided Assessment and Plan Plan: Plan: UTI, with AMS now resolved -Continue with ceftriaxone 1 g daily -Follow up urine and blood cultures -Monitor leukocytosis with daily CBC Debility -PT consult R sided infiltrate with mild cough, likely developing CAP -Will treat with Azithromycin for now with on-going Ceftriaxone -Coronavirus pcr negative Elevated CK, mild rhabdoyolysis -Resolved, we will continue gentle IV fluid hydration with normal saline at 50 mL per hour CKD stage IV -At baseline HTN -C/w home meds: Norvvasc, Coreg Type 2 DM -RONAN with FS -C/w Levemir 10 U qhs (takes Lantus 12 U qhs at home) CAD s/p cath and stenting (2011) -Unclear why patient is not on ASA or Statin, follow-up with cardiology as directed DVT prophylaxis -Heparin subq The patient is admitted with an anticipated greater than 2 midnight stay for evaluation of UTI, Debility CODE STATUS: Full Code Discussed with: Patient Anticipated discharge date: 2-[address]: Home
[2019-07-26] MEDS: amLODIPine 5 MG TAB PO SCH (12:27)
[2019-07-26 16:37] LABS: Glucose,Whole Blood 160 mg/dL (75-99)
[2019-07-26] MEDS: ACETAMINOPHEN TAB 325 MG TAB PO PRN (17:16)
[2019-07-26 20:51] LABS: Glucose,Whole Blood 212 mg/dL (75-99)
[2019-07-26 21:35] LABS: Glucose,Whole Blood 208 mg/dL (75-99)
[2019-07-26] MEDS: INSULIN DETEMIR (LEVEMIR) 100 UNIT/ML SYR SQ SCH (21:35)
[2019-07-26] MEDS: AZITHROMYCIN 500 MG TAB PO SCH (21:35)
[2019-07-27] MEDS: HEPARIN SODIUM,PORCINE 5,000 UNIT/ML 1 ML VIAL SQ SCH ×3 (01:15→17:18)
[2019-07-27 06:06] LABS: HCT 35.9 % (34.0-46.0); HGB 11.1 gm/dL (11.4-16.0); Hypochromasia Slight; MCH 27.5 pg (25.0-35.0); MCHC 30.8 g/dL (31.0-37.0); MCV 89.1 fL (80.0-100.0); Mean Platelet Volume 7.3; Platelet Count 222 k/uL (150-450); RBC 4.03 m/uL (3.80-5.40); RDW 13.4 % (11.5-15.5); WBC 6.9 k/uL (3.8-10.6)
[2019-07-27 06:17] LABS: Calcium 8.5 mg/dL (8.4-10.2); Potassium 4.3 mmol/L (3.5-5.1); Total Bilirubin 0.1 mg/dL (0.2-1.3); Total Protein 5.9 g/dL (6.3-8.2)
[2019-07-27] MEDS: SODIUM CHLORIDE 0.9% 1,000 ML IV SCH ×2 (07:07→07:40)
[2019-07-27] MEDS: ACETAMINOPHEN TAB 325 MG TAB PO PRN (07:38)
[2019-07-27] MEDS: MULTIVITAMINS, THERA 1 EACH TAB PO SCH ×2 (07:39→07:42)
[2019-07-27] MEDS: CARVEDILOL 6.25 MG TAB PO SCH ×2 (07:40→17:22)
[2019-07-27] MEDS: INSULIN ASPART (NovoLOG) 100 UNIT/ML VIAL SQ SCH ×3 (07:40→17:14)
[2019-07-27 07:46] LABS: Glucose,Whole Blood 98 mg/dL (75-99)
[2019-07-27 12:02] LABS: Glucose,Whole Blood 219 mg/dL (75-99)
[2019-07-27] MEDS: amLODIPine 5 MG TAB PO SCH (12:39)
[2019-07-27 16:56] LABS: Glucose,Whole Blood 123 mg/dL (75-99)
--- NOTE | 2019-07-27 20:33 | P.PN ---
Subjective Progress Note Date: 07/27/19 (delayed charting seen at 1130) Principal diagnosis: confusion and fall Patient is a 73-year-old female with diabetes mellitus type 2, high blood pressure, and peripheral vascular disease with resultant right BKA who presented to the hospital after being found on her floor via EMS. On arrival to the ER she was hypertensive. Laboratory analysis showed a white blood cell count of 13.6, BUN 33, creatinine 1.86, and urine appeared positive for urinary tract infection. She is admitted for UTI and acute kidney injury. She was started on IV fluids and Rocephin. Initial x-ray showed possible infiltrate versus atelectasis however repeat x-ray confirmed that this is likely atelectasis. She had a hip x-ray on the right due to pain which showed osteopenia. Patient seen and examined at bedside. She is very upset and states that she has not been treated well. She denies any chest pain or shortness of breath. She is feeling weak. She is concerned about will pick her up to go home. She is mad about her sock being lost with EMS, though she is unsure whether EMS grabbed her socks before they left the house. Objective - Vital Signs Vital signs: Vital Signs Temp 98.4 F 07/27/19 18:50 Pulse 73 07/27/19 18:50 Resp 19 07/27/19 18:50 BP 135/74 07/27/19 18:50 Pulse Ox 95 07/27/19 18:50 Intake & Output 07/27/19 07/27/19 07/28/19 06:59 18:59 06:59 Intake Total 200 480 Output Total 300 Balance 200 180 Intake: Intake, IV Titration 300 Amount Sodium Chloride 0.9% 1, 300 000 ml @ 50 mls/hr IV . Q20H [facility] Rx#:[id number] Oral 200 180 Output: Urine 300 Other: # Voids 1 - Exam General: non toxic, no distress, appears at stated age Derm: warm, dry Head: atraumatic, normocephalic, symmetric Eyes: EOMI, no lid lag, anicteric sclera Mouth: no lip lesion, mucus membranes moist Cardiovascular: S1S2 reg, no murmur, positive posterior tibial pulse left, Lungs: CTA bilateral, no rhonchi, no rales , no accessory muscle use Abdominal: soft, nontender to palpation, no guarding, no appreciable organomegaly Ext: no gross muscle atrophy, no edema, no contractures, right BKA Neuro: CN II-XI grossly intact, no focal neuro deficits Psych: Alert, oriented to being in the hospital, appears somewhat confused - Labs CBC & Chem 7: 07/27/19 05:31 07/27/19 05:31 Labs: Abnormal Lab Results - Last 24 Hours (Table) 07/26/19 07/26/19 07/27/19 Range/Units 20:49 21:34 05:31 Hgb 11.1 L (11.4-16.0) gm/dL MCHC 30.8 L (31.0-37.0) g/dL Chloride (98-107) mmol/L BUN (7-17) mg/dL Creatinine (0.52-1.04) mg/dL POC Glucose (mg/dL) 212 H 208 H (75-99) mg/dL Total Bilirubin (0.2-1.3) mg/dL Total Protein (6.3-8.2) g/dL Albumin (3.5-5.0) g/dL 07/27/19 07/27/19 07/27/19 Range/Units 05:31 11:58 16:54 Hgb (11.4-16.0) gm/dL MCHC (31.0-37.0) g/dL Chloride 111 H (98-107) mmol/L BUN 43 H (7-17) mg/dL Creatinine 2.31 H (0.52-1.04) mg/dL POC Glucose (mg/dL) 219 H 123 H (75-99) mg/dL Total Bilirubin 0.1 L (0.2-1.3) mg/dL Total Protein 5.9 L (6.3-8.2) g/dL Albumin 3.0 L (3.5-5.0) g/dL Microbiology - Last 24 Hours (Table) 07/25/19 19:50 Blood Culture - Preliminary Blood No Growth after 24 hours 07/25/19 18:08 Urine Culture - Preliminary Urine,Voided Gram Neg Bacilli Assessment and Plan Assessment: UTI,, POA, with Toxic metabolic encephalopathy -Continue with ceftriaxone 1 g daily -Follow up urine and blood cultures -Monitor leukocytosis with daily CBC SANIYA on CKD stage IV -IV fluids - Follow CR - Avoid nephrotoxic agents HTN -BP controlled - Continue coreg and norvasc Type 2 DM -SSI, follow BS -Levemir 10 units CAD s/p cath and stenting 2011 -Unclear why patient is not on ASA or Statin -follow-up with cardiology as outpatinet Debility -PT/oT recs: likely will need MADHU on discharge DVT prophylaxis -Heparin subq Atelectaisis, improved (pneimonia ruled out) Elevated CK, mild rhabdoyolysis, Resolved DVT prophylaxis: SCDs CODE STATUS: Full Code Discussed with: Patient, nursing Anticipated discharge date: 2-[address]: Home
[2019-07-27 20:47] LABS: Glucose,Whole Blood 177 mg/dL (75-99)
[2019-07-27] MEDS: AZITHROMYCIN 500 MG TAB PO SCH (22:04)
[2019-07-27] MEDS: INSULIN DETEMIR (LEVEMIR) 100 UNIT/ML SYR SQ SCH (22:05)
[2019-07-28] MEDS: HEPARIN SODIUM,PORCINE 5,000 UNIT/ML 1 ML VIAL SQ SCH ×4 (01:36→23:13)
[2019-07-28] MEDS: ACETAMINOPHEN TAB 325 MG TAB PO PRN ×2 (03:32→20:26)
[2019-07-28] MEDS: SODIUM CHLORIDE 0.9% 1,000 ML IV SCH (03:45)
[2019-07-28 07:03] LABS: Glucose,Whole Blood 83 mg/dL (75-99)
[2019-07-28] MEDS: INSULIN ASPART (NovoLOG) 100 UNIT/ML VIAL SQ SCH ×3 (07:04→18:28)
[2019-07-28 08:41] LABS: HCT 37.4 % (34.0-46.0); HGB 11.8 gm/dL (11.4-16.0); Hypochromasia Slight; MCH 27.9 pg (25.0-35.0); MCHC 31.5 g/dL (31.0-37.0); MCV 88.4 fL (80.0-100.0); Mean Platelet Volume 7.9; Platelet Count 241 k/uL (150-450); RBC 4.22 m/uL (3.80-5.40); RDW 13.5 % (11.5-15.5); WBC 8.8 k/uL (3.8-10.6)
[2019-07-28] MEDS: MULTIVITAMINS, THERA 1 EACH TAB PO SCH (08:44)
[2019-07-28] MEDS: CARVEDILOL 6.25 MG TAB PO SCH ×2 (08:46→18:27)
[2019-07-28 08:52] LABS: Albumin 3.3 g/dL (3.5-5.0); Calcium 8.7 mg/dL (8.4-10.2); Potassium 4.6 mmol/L (3.5-5.1); Total Bilirubin 0.3 mg/dL (0.2-1.3); Total Protein 6.4 g/dL (6.3-8.2)
[2019-07-28] MEDS: SODIUM CHLORIDE 0.45% 1,000 ML IV SCH (10:31)
[2019-07-28 12:05] LABS: Glucose,Whole Blood 108 mg/dL (75-99)
[2019-07-28] MEDS: PANTOPRAZOLE 40 MG TABLET PO SCH (14:33)
[2019-07-28] MEDS: amLODIPine 5 MG TAB PO SCH (14:33)
[2019-07-28] MEDS ORDERED: PIPERACILLIN-TAZOBACTAM 3.375 GM in SODIUM CHLORIDE 0.9% 100 ML IVPB SCH (16:00)
[2019-07-28] MEDS ORDERED: amLODIPine 5 MG TAB PO STA (17:05)
--- NOTE | 2019-07-28 17:06 | P.PN ---
Subjective Progress Note Date: 07/28/19 (delayed charting seen at 1130) Principal diagnosis: confusion and fall Patient is a 73-year-old female with diabetes mellitus type 2, high blood pressure, and peripheral vascular disease with resultant right BKA who presented to the hospital after being found on her floor via EMS. On arrival to the ER she was hypertensive. Laboratory analysis showed a white blood cell count of 13.6, BUN 33, creatinine 1.86, and urine appeared positive for urinary tract infection. She is admitted for UTI and acute kidney injury. She was started on IV fluids and Rocephin. Initial x-ray showed possible infiltrate versus atelectasis however repeat x-ray confirmed that this is likely atelectasis. She had a hip x-ray on the right due to pain which showed osteopenia. She continues to have anxiety and weakness. Physical therapy was recommending subacute rehab. Urinary tract infection came back as Citrobacter which was resistant to all oral medications except what is listed as ALLERGIES and infectious disease consulted. Patient seen and examined at bedside. Still upset regarding her glasses and not having her sock, she seems perplexed about this upset, and crying. I discussed =multiple times what can be done about what cannot however she is continues to perseverate. At this point in time she continues to complain of several months duration of postnasal drip and phlegm. She denies any abdominal pain, nausea, vomiting, or diarrhea. Objective - Vital Signs Vital signs: Vital Signs Temp 97.9 F 07/28/19 07:00 Pulse 68 07/28/19 16:37 Resp 16 07/28/19 08:44 BP 195/85 07/28/19 16:37 Pulse Ox 95 07/28/19 08:44 Intake & Output 07/27/19 07/28/19 07/28/19 18:59 06:59 18:59 Intake Total 480 250 550 Output Total 300 900 Balance 180 -650 550 Intake: Intake, IV Titration 300 450 Amount Sodium Chloride 0.45% 1, 450 000 ml @ 75 mls/hr IV . [id number] [facility] Rx#:[id number] Sodium Chloride 0.9% 1, 300 000 ml @ 75 mls/hr IV . [id number] [facility] Rx#:[id number] Oral 180 250 100 Output: Urine 300 900 - Exam General: non toxic, no distress, appears at stated age Derm: warm, dry Head: atraumatic, normocephalic, symmetric Eyes: EOMI, no lid lag, anicteric sclera Cardiovascular: S1S2 reg, no murmur, positive posterior tibial pulse left, Lungs: CTA bilateral, no rhonchi, no rales , no accessory muscle use Abdominal: soft, nontender to palpation, no guarding, no appreciable organomegaly Ext: no gross muscle atrophy, no edema, no contractures, right BKA Neuro: CN II-XI grossly intact, no focal neuro deficits Psych: Alert, oriented to being in the hospital, appears to perseverate - Labs CBC & Chem 7: 07/28/19 07:39 07/28/19 07:39 Labs: Abnormal Lab Results - Last 24 Hours (Table) 07/27/19 07/28/19 07/28/19 Range/Units 20:46 07:39 12:03 Chloride 113 H (98-107) mmol/L Carbon Dioxide 20 L (22-30) mmol/L BUN 41 H (7-17) mg/dL Creatinine 2.05 H (0.52-1.04) mg/dL POC Glucose (mg/dL) 177 H 108 H (75-99) mg/dL Albumin 3.3 L (3.5-5.0) g/dL Microbiology - Last 24 Hours (Table) 07/25/19 19:50 Blood Culture - Preliminary Blood No Growth after 48 hours 07/25/19 18:08 Urine Culture - Final Urine,Voided Citrobacter amalonaticus Assessment and Plan Assessment: Citrobacter UTI, POA, with Toxic metabolic encephalopathy -Rocephin changed to Zosyn -It appears patient is confused about her ALLERGY. Initially she denied having ALLERGY to Cipro/Levaquin or Bactrim but then states she has a sulfa ALLERGY, then continuing she has a complex ALLERGY, amoxicillin, Augmentin, and essentially ALLERGY to any antibiotic ever tried. When asked what these reactions are she states that her arms swell. She denies any overt signs of hives or throat closing but states her body itches and swells with all antibiotics. -Blood cultures negative to date -Consult ID SANIYA on CKD stage IV -IV fluids, improved - Follow CR - Avoid nephrotoxic agents HTN, accelerated -Follow BP - Continue coreg and norvasc Type 2 DM -SSI, follow BS -Levemir decreased CAD s/p cath and stenting 2011 -Unclear why patient is not on ASA or Statin -follow-up with cardiology as outpatinet Debility -PT/oT recs: likely will need MADHU on discharge DVT prophylaxis -Heparin subq Atelectaisis, improved (pneumonia ruled out) Elevated CK, mild rhabdoyolysis, Resolved DVT prophylaxis: SCDs CODE STATUS: Full Code Discussed with: Patient, nursing Anticipated discharge date: 2-[address]: Home
[2019-07-28 17:11] LABS: Glucose,Whole Blood 184 mg/dL (75-99)
[2019-07-28] MEDS: PIPERACILLIN-TAZOBACTAM 3.375 GM in SODIUM CHLORIDE 0.9% 100 ML IVPB SCH (17:32)
[2019-07-28 17:50] LABS: Appearance,Urine Cloudy (Clear); Bacteria,Urine Moderate /hpf; Bilirubin,Urine Negative (Negative); Blood,Urine Trace (Negative); Color,Urine Light Yellow; Glucose,Urine (UA) 1+ (Negative); Ketones,Urine Negative (Negative); Leukocyte Esterase,Urine Large (Negative); Mucus,Urine Rare /hpf; Nitrite,Urine Positive (Negative); PH, Urine 5.5 (5.0-8.0); Protein,Urine 1+ (Negative); RBC,Urine 25 /hpf (0-5); Specific Gravity,Urine 1.015 (1.001-1.035); Squamous Epithelial Cell,Urine 2 /hpf (0-4); Urobilinogen,Urine <2.0 mg/dL (<2.0); WBC,Urine 135 /hpf (0-5)
[2019-07-28] MEDS: AZITHROMYCIN 500 MG TAB PO SCH (20:29)
[2019-07-28 21:06] LABS: Glucose,Whole Blood 185 mg/dL (75-99)
[2019-07-28] MEDS: INSULIN DETEMIR (LEVEMIR) 100 UNIT/ML SYR SQ SCH (21:34)
--- NOTE | 2019-07-29 03:43 | P.CONS ---
History of Present Illness - Reason for Consult Consult date: 07/28/19 UTI Requesting physician: Melissa Stephen - Chief Complaint Fall x 1 day - History of Present Illness Patient is a 73-year female past medical significant for diabetes mellitus peripheral arterial disease status post right below the knee amputation in this patient who was brought to the hospital at [facility] patient was found to be on the ground patient had been seen 4 days prior to have the patient has been brought to the hospital apparently the patient says she felt because her posterior neck on right leg did not fit properly patient denies having any loss of consciousness no abdominal pain no nausea no vomiting or any diarrhea with these symptom the patient has been brought into the ER on arrival to the ER the patient has been afebrile and no fever has been recorded during this hospital admission patient did have white blood 13.6 also noticed to have elevated BUN and creatinine patient did have a positive UA which was cloudy with large leukocyte Estrace more than 1-2 WBC those culture has been finalized with Citrobacter which is resistant to ceftriaxone patient was on the patient did have a negative antibiotic allergies antibiotic has been switched over to Zosyn infectious disease was consulted for further recommendation about antibiotic therapy patient did have a chest x-ray which shows increased density right medial lung base reflect developing infiltrate patient did have some URI symptom free postnasal drip but denies significant cough or sputum production or shortness of breath, no PCR was negative. Review of Systems Positive point has been mentioned in HPI rest of the systems are negative Past Medical History Past Medical History: Cancer, Diabetes Mellitus, Hyperlipidemia, Hypertension, Myocardial Infarction ([place]) Additional Past Medical History / Comment(s): past rt breast cancer 1998,vertigo, snycope, Vagal response ([facility]), Heart murmur, ibs(norm is loose stool), arthritis,pvd,lt.foot wound Last Myocardial Infarction Date:: 2011 History of Any Multi-Drug Resistant Organisms: None Reported Past Surgical History: Appendectomy, Cholecystectomy, Heart Catheterization With Stent, Hernia Repair, Hysterectomy, Pacemaker Additional Past Surgical History / Comment(s): right below knee amputation,left fifth toe removed, right lumpectomy with lymphnode removal. no iv, shots or bp in rt arm .laser eye sx(retina), cataracts, colonoscopy Past Anesthesia/Blood Transfusion Reactions: No Reported Reaction Date of Last Stent Placement:: 2011 Type of Cardiac Device: Permanent Pacemaker Device Placement Date:: unk Past Psychological History: Anxiety Smoking Status: Never smoker Past Alcohol Use History: None Reported Past Drug Use History: None Reported - Past Family History Mother Family Medical History: Cancer, Diabetes Mellitus, Hypertension, Myocardial Infarction ([place]) Additional Family Medical History / Comment(s): heart problems Father Family Medical History: Myocardial Infarction ([place]) Medications and Allergies Home Medications Medication Instructions Recorded Confirmed Type amLODIPine [Norvasc] 5 mg PO PC-LUNCH 07/05/17 07/25/19 History Carvedilol [Coreg] 6.25 mg PO BID 07/25/19 07/25/19 History Fluticasone Nasal [place] [Flonase 1 spray EA NOSTRIL DAILY PRN 07/25/19 07/25/19 History Nasal [place]] Insulin Glargine [Lantus] 12 unit SQ DAILY 07/25/19 07/25/19 History Ipratropium [place] 0.06%Nasal 1 spray EA NOSTRIL DAILY PRN 07/25/19 07/25/19 History [Atrovent Nasal 0.06%] Multivitamins, Thera [Multivitamin 1 tab PO DAILY 07/25/19 07/25/19 History (formulary)] Propylene Glycol/Peg 400/Pf 1 dropper BOTH EYES TID 07/25/19 07/25/19 History [Systane 0.3-0.4% Eye Drops] Allergies Allergy/AdvReac Type Severity Reaction Status Date / Time ciprofloxacin [From Cipro] Allergy Unknown Verified 07/25/19 19:59 Iodinated Contrast Media Allergy Unknown Verified 07/25/19 19:59 [Iodinated Contrast Media - IV Dye] levofloxacin [From Levaquin] Allergy Unknown Verified 07/25/19 19:59 Sulfa (Sulfonamide Allergy Unknown Verified 07/25/19 19:59 Antibiotics) Physical Exam Vitals: Vital Signs Temp Pulse Resp BP Pulse Ox 07/28/19 08:44 81 16 178/83 95 07/28/19 08:15 16 07/28/19 07:00 97.9 F 77 18 175/77 95 07/28/19 03:39 170/82 07/27/19 23:45 98.6 F 71 19 181/79 95 07/27/19 18:50 98.4 F 73 19 135/74 95 07/27/19 16:18 16 Intake and Output 07/28/19 07/28/19 07/28/19 06:59 14:59 22:59 Intake Total 100 550 Output Total 700 Balance -600 550 Intake: Intake, IV Titration 450 Amount Sodium Chloride 0.45% 1, 450 000 ml @ 75 mls/hr IV . [id number] [facility] Rx#:[id number] Oral 100 100 Output: Urine 700 GENERAL DESCRIPTION: Elderly female lying in bed, no distress. No tachypnea or accessory muscle of respiration use. HEENT: Shows Pallor , no scleral icterus. Oral mucous membrane is dry. NECK: Trachea central, no thyromegaly. LUNGS: Unlabored breathing. Decreased breath sound at the base. No wheeze or crackle. HEART: S1, S2, regular rate and rhythm. ABDOMEN: Soft, no tenderness , guarding or rigidity EXTREMITIES: No edema of feet. SKIN: No rash, no masses palpable. NEUROLOGICAL: The patient is awake, alert, oriented x3, mood and affect normal. Results CBC & Chem 7: 07/28/19 07:39 07/28/19 07:39 Labs: Abnormal Lab Results - Last 24 Hours (Table) 07/27/19 07/27/19 07/28/19 Range/Units 16:54 20:46 07:39 Chloride 113 H (98-107) mmol/L Carbon Dioxide 20 L (22-30) mmol/L BUN 41 H (7-17) mg/dL Creatinine 2.05 H (0.52-1.04) mg/dL POC Glucose (mg/dL) 123 H 177 H (75-99) mg/dL Albumin 3.3 L (3.5-5.0) g/dL 07/28/19 Range/Units 12:03 Chloride (98-107) mmol/L Carbon Dioxide (22-30) mmol/L BUN (7-17) mg/dL Creatinine (0.52-1.04) mg/dL POC Glucose (mg/dL) 108 H (75-99) mg/dL Albumin (3.5-5.0) g/dL Microbiology - Last 24 Hours (Table) 07/25/19 19:50 Blood Culture - Preliminary Blood No Growth after 48 hours 07/25/19 18:08 Urine Culture - Final Urine,Voided Citrobacter amalonaticus Assessment and Plan Assessment: 1-patient is a 73-year-old female who has been brought into the ER after the patient was found to be on the floor patient tripped as a prosthetic leg did not fit well with no fever and this patient did have mild elevated white count on admission which could have been due to hemoconcentration as the patient also have acute on chronic renal failure he did have some positive UA but no significant suprapubic or flank pain though did mention the urine stick being only symptom with concern for possible mild cystitis 2-patient with multiple antibiotic allergies unfortunately no oral options (1) Allergy to multiple antibiotics Current Visit: Yes Status: Acute Code(s): Z88.1 - ALLERGY STATUS TO OTHER ANTIBIOTIC AGENTS STATUS SNOMED Code(s): 846142618 (2) Urinary tract infection Current Visit: Yes Status: Acute Code(s): N39.0 - URINARY TRACT INFECTION, SITE NOT SPECIFIED SNOMED Code(s): 72150498 Plan: 1-we will repeat her UA and a culture 2-continue with Zosyn 3.375 g every 8 hour and may consider a 3-day course while inpatient 3-gentle IV fluid We will follow on clinical condition and cultures to further adjust medication if needed Thank you for this consultation we will follow the patient along with you Time with Patient: Greater than 30
[2019-07-29] MEDS: ALPRAZolam 0.5 MG TAB PO PRN ×2 (04:17→21:29)
[2019-07-29] MEDS: PIPERACILLIN-TAZOBACTAM 3.375 GM in SODIUM CHLORIDE 0.9% 100 ML IVPB SCH ×2 (05:09→17:29)
[2019-07-29] MEDS: SODIUM CHLORIDE 0.45% 1,000 ML IV SCH ×2 (06:49→12:16)
[2019-07-29 06:57] LABS: Glucose,Whole Blood 122 mg/dL (75-99)
[2019-07-29] MEDS: INSULIN ASPART (NovoLOG) 100 UNIT/ML VIAL SQ SCH ×3 (07:01→17:28)
[2019-07-29] MEDS: MULTIVITAMINS, THERA 1 EACH TAB PO SCH (07:36)
[2019-07-29] MEDS: HEPARIN SODIUM,PORCINE 5,000 UNIT/ML 1 ML VIAL SQ SCH ×3 (07:37→23:07)
[2019-07-29] MEDS: CARVEDILOL 6.25 MG TAB PO SCH ×2 (07:37→17:29)
[2019-07-29] MEDS: PANTOPRAZOLE 40 MG TABLET PO SCH (07:37)
[2019-07-29 08:15] LABS: Calcium 8.5 mg/dL (8.4-10.2); Potassium 4.4 mmol/L (3.5-5.1)
[2019-07-29 11:57] LABS: Glucose,Whole Blood 139 mg/dL (75-99)
[2019-07-29] MEDS: LORATADINE 10 MG TAB PO SCH (12:15)
[2019-07-29] MEDS: amLODIPine 10 MG TAB PO SCH (12:15)
[2019-07-29] MEDS: ACETAMINOPHEN TAB 325 MG TAB PO PRN (14:24)
[2019-07-29 17:03] LABS: Glucose,Whole Blood 172 mg/dL (75-99)
--- NOTE | 2019-07-29 20:32 | P.PN ---
Subjective Progress Note Date: 07/29/19 (delayed charting seen at 1030) Principal diagnosis: confusion and fall Patient is a 73-year-old female with diabetes mellitus type 2, high blood pressure, and peripheral vascular disease with resultant right BKA who presented to the hospital after being found on her floor via EMS. On arrival to the ER she was hypertensive. Laboratory analysis showed a white blood cell count of 13.6, BUN 33, creatinine 1.86, and urine appeared positive for urinary tract infection. She is admitted for UTI and acute kidney injury. She was started on IV fluids and Rocephin. Initial x-ray showed possible infiltrate versus atelectasis however repeat x-ray confirmed that this is likely atelectasis. She had a hip x-ray on the right due to pain which showed osteopenia. She continues to have anxiety and weakness. Physical therapy was recommending subacute rehab. Urinary tract infection came back as Citrobacter which was resistant to all oral medications except what is listed as ALLERGIES and infectious disease consulted. Patient seen and examined at bedside. Feeling somewhat better today, has her glasses, no chest pain, no shortness breath, no nausea. Still feeling significantly weak. Not having any hip pain today. Objective - Vital Signs Vital signs: Vital Signs Temp 97.7 F 07/29/19 15:00 Pulse 67 07/29/19 15:00 Resp 18 07/29/19 15:00 BP 169/82 07/29/19 15:00 Pulse Ox 97 07/29/19 15:00 Intake & Output 07/29/19 07/29/19 07/30/19 06:59 18:59 06:59 Intake Total 160 300 Output Total 600 Balance -440 300 Intake: Intake, IV Titration 160 Amount Piperacillin-Tazobactam 3 100 .375 gm In Sodium Chloride 0.9% 100 ml @ 25 mls/hr IVPB Q12H [facility] Rx# :[id number] Sodium Chloride 0.45% 1, 60 000 ml @ 75 mls/hr IV . [id number] [facility] Rx#:[id number] Oral 300 Output: Urine 600 Other: # Voids 3 # Bowel Movements 1 1 - Exam General: non toxic, no distress, appears at stated age Derm: warm, dry Head: atraumatic, normocephalic, symmetric Eyes: EOMI, no lid lag, anicteric sclera Cardiovascular: S1S2 reg, no murmur, positive posterior tibial pulse left, Lungs: Decreased breath sounds bilateral, no rhonchi, no rales , no accessory m uscle use Abdominal: soft, nontender to palpation, no guarding, no appreciable organomegaly Ext: no gross muscle atrophy, no edema, no contractures, right BKA Neuro: CN II-XI grossly intact, no focal neuro deficits Psych: Alert, oriented, flat affect - Labs CBC & Chem 7: 07/28/19 07:39 07/29/19 07:17 Labs: Abnormal Lab Results - Last 24 Hours (Table) 07/28/19 07/29/19 07/29/19 Range/Units 21:05 06:54 07:17 Chloride 111 H (98-107) mmol/L BUN 40 H (7-17) mg/dL Creatinine 2.03 H (0.52-1.04) mg/dL Glucose 120 H (74-99) mg/dL POC Glucose (mg/dL) 185 H 122 H (75-99) mg/dL 07/29/19 07/29/19 Range/Units 11:56 17:02 Chloride (98-107) mmol/L BUN (7-17) mg/dL Creatinine (0.52-1.04) mg/dL Glucose (74-99) mg/dL POC Glucose (mg/dL) 139 H 172 H (75-99) mg/dL Microbiology - Last 24 Hours (Table) 07/28/19 17:30 Urine Culture - Final Urine,Voided 07/25/19 19:50 Blood Culture - Preliminary Blood No Growth after 72 hours Assessment and Plan Assessment: Citrobacter UTI, POA, with Toxic metabolic encephalopathy -Rocephin changed to Zosyn -It appears patient is confused about her ALLERGIES. Initially she denied having ALLERGY to Cipro/Levaquin or Bactrim but then states she has a sulfa ALLERGY, then continuing she has a complex ALLERGIES, amoxicillin, Augmentin, and essentially ALLERGY to any antibiotic ever tried. When asked what these reactions are she states that her arms swell. She denies any overt signs of hives or throat closing but states her body itches and swells with all antibiotics. -Blood cultures negative to date -ID recs appreciated - repeat urine culture with skin or urogential joe CKD stage IV - Follow CR - Avoid nephrotoxic agents HTN -Follow BP - Continue coreg and norvasc Type 2 DM -SSI, follow BS -Levemir decreased CAD s/p cath and stenting 2011 -Unclear why patient is not on ASA or Statin -follow-up with cardiology as outpatinet Debility -PT/OT recs: likely will need MADHU on discharge DVT prophylaxis -Heparin subq Atelectaisis, improved (pneumonia ruled out) Elevated CK, mild rhabdoyolysis, Resolved SANIYA, resolved DVT prophylaxis: SCDs CODE STATUS: Full Code Discussed with: Patient, nursing Anticipated discharge date: 2-[address]: Home
[2019-07-29 21:10] LABS: Glucose,Whole Blood 208 mg/dL (75-99)
[2019-07-29] MEDS: AZITHROMYCIN 500 MG TAB PO SCH (21:28)
[2019-07-29] MEDS: INSULIN DETEMIR (LEVEMIR) 100 UNIT/ML SYR SQ SCH (21:29)
--- NOTE | 2019-07-30 01:06 | PN ---
PROGRESS NOTE DATE OF SERVICE: 07/29/2019 REASON FOR FOLLOWUP: Urinary tract infection. INTERVAL HISTORY: The patient is currently afebrile. She is breathing comfortably. Denies having chest pain or cough. No abdominal pain. No diarrhea or problem with urine at this point. PHYSICAL EXAMINATION: Blood pressure 169/82 with a pulse of 67, temperature 97.7. She is 97% on room air. General description is an elderly female lying in bed in no distress. RESPIRATORY SYSTEM: Unlabored breathing, clear to auscultation anteriorly. HEART: S1, S2. Regular rate and rhythm. ABDOMEN: Soft, no tenderness. LABS: BUN of 40, creatinine of 2.03. Repeat UA done yesterday slightly positive but better than the initial UA. DIAGNOSTIC IMPRESSION AND PLAN: Patient with a positive UA. Urine has been finalized with Citrobacter with no oral option in view of her allergies. The patient will receive her third day of antibiotic as of tomorrow and if the cultures that were done yesterday remains to be negative there will be no need for antibiotic on discharge. MMODL / IJN: [id number] /
[2019-07-30] MEDS: PIPERACILLIN-TAZOBACTAM 3.375 GM in SODIUM CHLORIDE 0.9% 100 ML IVPB SCH ×2 (04:39→15:57)
[2019-07-30] MEDS: SODIUM CHLORIDE 0.45% 1,000 ML IV SCH ×2 (05:21→15:58)
[2019-07-30 06:54] LABS: Glucose,Whole Blood 91 mg/dL (75-99)
[2019-07-30] MEDS: INSULIN ASPART (NovoLOG) 100 UNIT/ML VIAL SQ SCH ×3 (07:39→16:47)
[2019-07-30] MEDS: CARVEDILOL 6.25 MG TAB PO SCH ×2 (07:49→16:47)
[2019-07-30] MEDS: LORATADINE 10 MG TAB PO SCH (07:49)
[2019-07-30] MEDS: HEPARIN SODIUM,PORCINE 5,000 UNIT/ML 1 ML VIAL SQ SCH ×3 (07:49→23:42)
[2019-07-30] MEDS: MULTIVITAMINS, THERA 1 EACH TAB PO SCH (07:49)
[2019-07-30] MEDS: PANTOPRAZOLE 40 MG TABLET PO SCH (07:49)
[2019-07-30] MEDS: ACETAMINOPHEN TAB 325 MG TAB PO PRN (10:07)
[2019-07-30] MEDS: ALPRAZolam 0.5 MG TAB PO PRN (10:11)
[2019-07-30 11:28] LABS: Glucose,Whole Blood 129 mg/dL (75-99)
[2019-07-30 12:15] LABS: Hemoglobin A1C 8.2 % (4.0-6.0)
[2019-07-30] MEDS: amLODIPine 10 MG TAB PO SCH (15:15)
[2019-07-30] MEDS: HYDROCORTISONE SUPPOSITORY 25 MG SUPP RECTAL SCH (15:27)
[2019-07-30 16:45] LABS: Glucose,Whole Blood 185 mg/dL (75-99)
--- NOTE | 2019-07-30 17:25 | PN ---
PROGRESS NOTE DATE OF SERVICE: 07/30/2019 REASON FOR FOLLOWUP: Urinary tract infection. INTERVAL HISTORY: The patient is currently afebrile. The patient has been breathing comfortably. Patient denies having any chest pain or any cough. No abdominal pain. Urinary symptoms resolved. PHYSICAL EXAMINATION: Blood pressure 146/67, pulse of 71, temperature 97.9. She is 98% on room air. General description is an elderly female up in the chair in no distress. RESPIRATORY SYSTEM: Unlabored breathing. Clear to auscultation anteriorly. HEART: S1, S2. Regular rate and rhythm. ABDOMEN: Soft. No tenderness. LABS: Hemoglobin 11.8, white count 8.8. BUN of 40, creatinine 2.03. Repeat urine culture so far negative. DIAGNOSTIC IMPRESSION AND PLAN: Patient with a Citrobacter urinary tract infection with possible cystitis. She is on Zosyn, which can be discontinued on discharge. No need for an antibiotic on discharge. MMODL / IJN: [id number] /
--- NOTE | 2019-07-30 18:45 | P.PN ---
Progress Note - Text Progress Note Date: 07/30/19 Presenting complaint: Fall Interval history: The patient is a 73-year-old female with a PMH of type 2 DM, CKD stage IV, peripheral vascular disease status post right BKA, coronary artery disease status post multiple MIs with stents, hypertension, hyperlipidemia, and history of breast cancer was brought into the ED via EMS after she was found on the ground in her home. As per the ED documentation, the patient's sister called her and the patient did not answer, at which time she became concerned and asked her neighbor to go check in on her, who found the patient on the floor. The sister had reportedly spoken with the patient the day prior at which time the patient was at her baseline. The patient was found to be somewhat confused on the ground, and reported that she had fallen due to her prosthetic being loose the day prior and had been on the ground since. Over the sister of the EMS reported that the patient appeared to be somewhat confused at the scene and then subsequently in the ED. At time of the interview, the patient reported that she remembers falling and not being able to get up yesterday, and that it was due to her prosthetic. She denied head trauma, and did endorse hitting her right hip, though notes that her pain has subsided. She also endorsed that for the past few days she has had malodorous urine which is consistent with her history of multiple UTIs. The patient also endorsed a mild cough over the past few days, productive of whitish phlegm. Patient states that she lives by herself though does have some help with aides multiple times a week. She notes that she is typically able to manage things at home pretty well. She otherwise denied chest pain, shortness of breath, sore throat, or sick contacts. She also denied fever, chills, nausea, vomiting, or diarrhea. She denied headache or visual disturbance, weakness, or numbness. She underwent an extensive evaluation in the emergency room with a brain CT that was unremarkable. Chest x-ray revealed a right medial lung base increased density though otherwise unremarkable. EKG revealed normal sinus rhythm at 92 bpm with LVH and no ST/T-wave changes indicative of ischemia noted. Laboratory evaluation revealed a WBC count of 13.6, UA consistent with UTI, CK 213, alkaline phosphatase 160, troponin 0.019, BUN 33, creatinine 1.86, and a CO2 of 21. Sodium was 138, potassium 4.7, chloride 107, glucose 206, hemoglobin 13.1, and platelets 260. Patient is being admitted to the medicine service for further management of altered mentation in setting of UTI. Admitted with-acute UTI toxic metabolic encephalopathy. Not felt to have pneumonia. Today-I took over this patient today. laying in bed. Bit tired. Appetite fair. Review of systems: Was done for constitutional, cardiovascular, GI, pulmonary. relevant finding as above Active Medications Acetaminophen (Tylenol Tab) 650 mg PO Q6HR PRN PRN Reason: Fever and/ or Pain Last Admin: 07/30/19 10:07 Dose: 650 mg Documented by: Alprazolam (Xanax) 0.5 mg PO TID PRN PRN Reason: Anxiety Last Admin: 07/30/19 10:11 Dose: 0.5 mg Documented by: Amlodipine Besylate (Norvasc) 10 mg PO PC-LUNCH [facility] Last Admin: 07/30/19 15:15 Dose: 10 mg Documented by: Azithromycin (Zithromax) 500 mg PO HS [facility] Last Admin: 07/29/19 21:28 Dose: 500 mg Documented by: Carvedilol (Coreg) 6.25 mg PO AC-BID [facility] Last Admin: 07/30/19 16:47 Dose: 6.25 mg Documented by: Fluticasone Propionate (Flonase Nasal [place]) 1 spray EA NOSTRIL DAILY PRN PRN Reason: Allergy Symptoms Heparin Sodium (Porcine) (Heparin) 5,000 unit SQ Q8HR [facility] Last Admin: 07/30/19 15:56 Dose: 5,000 unit Documented by: Hydrocortisone Acetate (Anusol-Hc) 25 mg RECTAL DAILY [facility] Last Admin: 07/30/19 15:27 Dose: 25 mg Documented by: Sodium Chloride (Saline 0.45%) 1,000 mls @ 75 mls/hr IV .[id number] [facility] Last Admin: 07/30/19 15:58 Dose: 75 mls/hr Documented by: Piperacillin Sod/Tazobactam (Sod 3.375 gm/ Sodium Chloride) 100 mls @ 25 mls/hr IVPB Q12H [facility] Last Admin: 07/30/19 15:57 Dose: 25 mls/hr Documented by: Insulin Aspart (Novolog) 0 unit SQ AC-TID [facility]; Protocol Last Admin: 07/30/19 16:47 Dose: 2 unit Documented by: Insulin Detemir (Levemir) 8 unit SQ HS [facility] Last Admin: 07/29/19 21:29 Dose: 8 unit Documented by: Loratadine (Claritin) 10 mg PO DAILY [facility] Last Admin: 07/30/19 07:49 Dose: 10 mg Documented by: Miscellaneous Information (Pneumonia Protocol Utilized) 1 each PO ONCE PRN PRN Reason: Per Protocol Multivitamins (Theragran) 1 each PO DAILY [facility] Last Admin: 07/30/19 07:49 Dose: 1 each Documented by: Pantoprazole Sodium (Protonix) 40 mg PO AC-BRKFST [facility] Last Admin: 07/30/19 07:49 Dose: 40 mg Documented by: On examination: VITAL SIGNS: 98.7, 69, 16, 155/73, 96% GENERAL APPEARANCE: Lying in bed, not in distress. HEENT: Normal external appearance of nose and ear. Oral cavity normal EYES: Pupils equal. Conjunctiva normal. NECK: JVD not raised. Mass not palpable. RESPIRATORY: Respiratory effort normal. Lungs clear to auscultation. CARDIOVASCULAR: First and second sounds normal. No edema. ABDOMEN: Soft. Liver and spleen not palpable. No tenderness. No mass palpable. PSYCHIATRY: Alert and oriented x3. Mood and affect normal. EXTREMITY: Right below-knee amputation INVESTIGATIONS, reviewed in the clinical context: Accu-Cheks 129, 185 Previous testing: Potassium 4.4 bun 40 creatinine 2.03 UA positive; urine culture positive for Citrobacter amalonaticus Computed tomography scan of the brain-male acute Right hip x-ray negative for fracture Chest x-ray repeat no infiltrate creatinine September 2017 was 2.06 Assessment: -Acute UTI from cystitis, POA from Citrobacter amalonaticus -Acute toxic metabolic encephalopathy from UTI, POA -Chronic kidney disease stage IV from hypertensive nephrosclerosis and possibly diabetic nephropathy -Diabetes mellitus type 2 -Hyperlipidemia -Essential hypertension -Primary osteoarthritis -Peripheral arterial disease -Coronary artery disease with stent -Right below-knee) Amputation -Discharge planning-home Plan: Continue current medication. Plan. Patient's ferritin IV Zosyn. Stop Zithromax. DC IV fluids. Add Lovenox for DVT prophylaxis. Hopefully can be discharged tomorrow.
[2019-07-30 20:58] LABS: Glucose,Whole Blood 208 mg/dL (75-99)
[2019-07-30] MEDS: INSULIN DETEMIR (LEVEMIR) 100 UNIT/ML SYR SQ SCH (21:35)
[2019-07-31 01:28] VITALS: TEMP 97.9
[2019-07-31] MEDS: PIPERACILLIN-TAZOBACTAM 3.375 GM in SODIUM CHLORIDE 0.9% 100 ML IVPB SCH (03:02)
[2019-07-31 07:01] LABS: Glucose,Whole Blood 115 mg/dL (75-99)
[2019-07-31 07:56] VITALS: PULSE 68; RESP 14
[2019-07-31] MEDS: INSULIN ASPART (NovoLOG) 100 UNIT/ML VIAL SQ SCH ×2 (08:07→11:53)
[2019-07-31] MEDS: PANTOPRAZOLE 40 MG TABLET PO SCH (08:20)
[2019-07-31] MEDS: HEPARIN SODIUM,PORCINE 5,000 UNIT/ML 1 ML VIAL SQ SCH (08:20)
[2019-07-31] MEDS: CARVEDILOL 6.25 MG TAB PO SCH (08:20)
[2019-07-31] MEDS: LORATADINE 10 MG TAB PO SCH (08:20)
[2019-07-31] MEDS: HYDROCORTISONE SUPPOSITORY 25 MG SUPP RECTAL SCH (08:20)
[2019-07-31] MEDS: MULTIVITAMINS, THERA 1 EACH TAB PO SCH (08:20)
[2019-07-31 11:46] LABS: Glucose,Whole Blood 169 mg/dL (75-99)
[2019-07-31] MEDS: ACETAMINOPHEN TAB 325 MG TAB PO PRN (11:52)
[2019-07-31 13:43] VITALS: BP 138/64
--- NOTE | 2019-07-31 14:59 | P.DS ---
Providers Date of admission: 07/25/19 19:25 Expected date of discharge: 07/31/19 Attending physician: Manuelito Millan Consults: 07/28/19 09:00 Consult Physician Routine Consulting Provider: Dominique Bonilla Consult Reason/Comments: UTI, citrobacter Do you want consulting provider notified?: Yes Primary care physician: [facility] Course: Presenting complaint: Fall Interval history: The patient is a 73-year-old female with a PMH of type 2 DM, CKD stage IV, peripheral vascular disease status post right BKA, coronary artery disease status post multiple MIs with stents, hypertension, hyperlipidemia, and history of breast cancer was brought into the ED via EMS after she was found on the ground in her home. As per the ED documentation, the patient's sister called her and the patient did not answer, at which time she became concerned and asked her neighbor to go check in on her, who found the patient on the floor. The sister had reportedly spoken with the patient the day prior at which time the patient was at her baseline. The patient was found to be somewhat confused on the ground, and reported that she had fallen due to her prosthetic being loose the day prior and had been on the ground since. Over the sister of the EMS reported that the patient appeared to be somewhat confused at the scene and then subsequently in the ED. At time of the interview, the patient reported that she remembers falling and not being able to get up yesterday, and that it was due to her prosthetic. She denied head trauma, and did endorse hitting her right hip, though notes that her pain has subsided. She also endorsed that for the past few days she has had malodorous urine which is consistent with her history of multiple UTIs. The patient also endorsed a mild cough over the past few days, productive of whitish phlegm. Patient states that she lives by herself though does have some help with aides multiple times a week. She notes that she is typically able to manage things at home pretty well. She otherwise denied chest pain, shortness of breath, sore throat, or sick contacts. She also denied fever, chills, nausea, vomiting, or diarrhea. She denied headache or visual disturbance, weakness, or numbness. She underwent an extensive evaluation in the emergency room with a brain CT that was unremarkable. Chest x-ray revealed a right medial lung base increased density though otherwise unremarkable. EKG revealed normal sinus rhythm at 92 bpm with LVH and no ST/T-wave changes indicative of ischemia noted. Laboratory evaluation revealed a WBC count of 1 3.6, UA consistent with UTI, CK 213, alkaline phosphatase 160, troponin 0.019, BUN 33, creatinine 1.86, and a CO2 of 21. Sodium was 138, potassium 4.7, chloride 107, glucose 206, hemoglobin 13.1, and platelets 260. Patient is being admitted to the medicine service for further management of altered mentation in setting of UTI. Admitted with-acute UTI with toxic metabolic encephalopathy. Not felt to have pneumonia. Urine culture did grow Citrobacter amalonaticus. Patient does have underlying chronic kidney disease. Treated with IV Zosyn. Did complete a course of antibiotics. Today-stable. Eating reasonably well. No new issues. On examination: VITAL SIGNS: 97.9, 68, 14, 138/64, 98% on room air GENERAL APPEARANCE: Lying in bed, comfortable HEENT: Normal external appearance of nose and ear. Oral cavity normal EYES: Pupils equal. Conjunctiva normal. NECK: JVD not raised. Mass not palpable. RESPIRATORY: Respiratory effort normal. Lungs clear to auscultation. CARDIOVASCULAR: First and second sounds normal. No edema. ABDOMEN: Soft. Liver and spleen not palpable. No tenderness. No mass palpable. PSYCHIATRY: Alert and oriented x3. Mood and affect normal. EXTREMITY: Right below-knee amputation INVESTIGATIONS, reviewed in the clinical context: Accu-Cheks 115, 169 Previous testing: Potassium 4.4 bun 40 creatinine 2.03 UA positive; urine culture positive for Citrobacter amalonaticus Computed tomography scan of the brain-nil acute Right hip x-ray negative for fracture Chest x-ray repeat no infiltrate creatinine September 2017 was 2.06 Assessment: -Acute UTI from cystitis, POA from Citrobacter amalonaticus -Acute toxic metabolic encephalopathy from UTI, POA -Chronic kidney disease stage IV from hypertensive nephrosclerosis and possibly diabetic nephropathy -Diabetes mellitus type 2 -Hyperlipidemia -Essential hypertension -Primary osteoarthritis -Peripheral arterial disease -Coronary artery disease with stent -Right below-knee) Amputation -Discharge planning-home Disposition: [facility] Patient Condition at Discharge: Stable Plan - Discharge Summary Discharge Rx Participant: Yes New Discharge Prescriptions: New Hydrocortisone Suppository [Anusol-Hc] 25 mg RECTAL DAILY #30 supp amLODIPine [Norvasc] 10 mg PO PC-LUNCH #30 tab INSULIN ASPART (NovoLOG) [NovoLOG (formulary)] 0 unit SQ AC-TID vial Continue Fluticasone Nasal Ward [Flonase Nasal Ward] 1 spray EA NOSTRIL DAILY PRN PRN Reason: Allergy Symptoms Propylene Glycol/Peg 400/Pf [Systane 0.3-0.4% Eye Drop] 1 dropper BOTH EYES TID Multivitamins, Thera [Multivitamin (formulary)] 1 tab PO DAILY Ipratropium Sargents 0.06%Nasal [Atrovent Nasal 0.06%] 1 spray EA NOSTRIL DAILY PRN PRN Reason: Allergy Symptoms Carvedilol [Coreg] 6.25 mg PO BID Changed Insulin Glargine [Lantus] 10 unit SQ DAILY #0 Discontinued amLODIPine [Norvasc] 5 mg PO PC-LUNCH Discharge Medication List Carvedilol [Coreg] 6.25 mg PO BID 07/25/19 [History] Fluticasone Nasal Ward [Flonase Nasal Ward] 1 spray EA NOSTRIL DAILY PRN 07/25/19 [History] Ipratropium Sargents 0.06%Nasal [Atrovent Nasal 0.06%] 1 spray EA NOSTRIL DAILY PRN 07/25/19 [History] Multivitamins, Thera [Multivitamin (formulary)] 1 tab PO DAILY 07/25/19 [History] Propylene Glycol/Peg 400/Pf [Systane 0.3-0.4% Eye Drop] 1 dropper BOTH EYES TID 07/25/19 [History] Hydrocortisone Suppository [Anusol-Hc] 25 mg RECTAL DAILY #30 supp 07/31/19 [Rx] INSULIN ASPART (NovoLOG) [NovoLOG (formulary)] 0 unit SQ AC-TID vial 07/31/19 [Rx] Insulin Glargine [Lantus] 10 unit SQ DAILY #0 07/31/19 [Rx] amLODIPine [Norvasc] 10 mg PO PC-LUNCH #30 tab 07/31/19 [Rx] Follow up Appointment(s)/Referral(s): [facility], [NON-STAFF] - Eleuterio Bray MD [Primary Care Provider] - 1-2 days (office not answering. Please call office to make appointment) Maurizio Gray DO [STAFF PHYSICIAN] - 1 Week (Please call office to set up appointment) Discharge Disposition: TRANSFER TO SNF/ECF
== END 2019-07-31 14:28 | disposition home health service (06) | DRG 689 ==
LOC: EC 15:42 → 4SSUR 19:25
PROVIDERS: ADMIT Hospitalist; ATTEND Hospitalist
DX: N30.00 Acute cystitis without hematuria (principal); G92 Toxic encephalopathy; N17.9 Acute kidney failure, unspecified; N18.4 Chronic kidney disease, stage 4 (severe); M62.82 Rhabdomyolysis; J98.11 Atelectasis; E11.22 Type 2 diabetes mellitus with diabetic chronic kidney disease; E11.51 Type 2 diabetes mellitus with diabetic peripheral angiopathy without gangrene; Z20.828 Contact with and (suspected) exposure to other viral communicable diseases; B96.89 Other specified bacterial agents as the cause of diseases classified elsewhere; E78.5 Hyperlipidemia, unspecified; F41.9 Anxiety disorder, unspecified; I12.9 Hypertensive chronic kidney disease with stage 1 through stage 4 chronic kidney disease, or unspecified chronic kidney disease; I25.10 Atherosclerotic heart disease of native coronary artery without angina pectoris; I25.2 Old myocardial infarction; M19.91 Primary osteoarthritis, unspecified site; M85.80 Other specified disorders of bone density and structure, unspecified site; K58.9 Irritable bowel syndrome, unspecified; R01.1 Cardiac murmur, unspecified; R09.82 Postnasal drip; R53.81 Other malaise; Z79.4 Long term (current) use of insulin; Z79.82 Long term (current) use of aspirin; Z79.899 Other long term (current) drug therapy; Z85.3 Personal history of malignant neoplasm of breast; Z87.440 Personal history of urinary (tract) infections; Z89.422 Acquired absence of other left toe(s); Z89.511 Acquired absence of right leg below knee; Z90.710 Acquired absence of both cervix and uterus; Z95.5 Presence of coronary angioplasty implant and graft; Z88.1 Allergy status to other antibiotic agents; Z88.2 Allergy status to sulfonamides; Z91.041 Radiographic dye allergy status; Z90.49 Acquired absence of other specified parts of digestive tract; Z95.0 Presence of cardiac pacemaker; Z98.42 Cataract extraction status, left eye; Z98.41 Cataract extraction status, right eye; Z96.1 Presence of intraocular lens; Z82.49 Family history of ischemic heart disease and other diseases of the circulatory system; Z83.3 Family history of diabetes mellitus; Z80.9 Family history of malignant neoplasm, unspecified; W19.XXXA Unspecified fall, initial encounter
CPT/HCPCS: 36415; 51702; 70450; 71046; 73501; 80048; 80053; 80306; 81001; 82550; 83036; 83605; 84484; 85025; 85027; 85610; 85730; 87040; 87077; 87086; 87186; 87635; 93005; 96365; 96375; 99285